=== PATIENT | female | born 1985 | race Caucasian/White ===

== ENCOUNTER 2018-03-30 13:34 | Inpatient (IN) | payer OTHER ==
[2018-03-30] MEDS ORDERED: LEVALBUTEROL 1.25 MG/3 ML NEB ONE (14:20)
[2018-03-30] MEDS ORDERED: NA CHLORIDE 0.9% 250 ML ONE (14:20)
--- NOTE | 2018-03-30 14:29 | RAD REPORT ---
EXAM DESCRIPTION: RAD - Chest Single View - 03/30/2018 2:24 pm CLINICAL HISTORY: DYSPNEA Chest pain. COMPARISON: No comparisons FINDINGS: Portable technique limits examination quality. Bilateral pulmonary opacities are present likely representing pulmonary edema. Prominent cardiomegaly is suspected. Trace pleural fluid is noted.
[2018-03-30 14:59] LABS: Absolute Lymphocytes (CBC) 2.5 K/uL (0.7-4.9); Absolute Monocytes 0.7 K/uL (0.1-1.3); Absolute Neutrophil 6.5 K/uL (1.8-8.0); Basophils % 0.9 % (0-1.3); Eosinophils % 0.4 % (0-4.4); Hematocrit 31.6 % (36.0-45.0); Lymphocytes % 25.6 % (15.3-44.8); MCH 23.2 pg (27.0-35.0); MCV 74.2 fL (80-100); MPV 7.9 fL (7.6-11.3); Monocytes % 7.4 % (3.3-12.3); RBC Red Blood Cell Count 4.26 M/uL (3.86-4.86)
[2018-03-30 15:00] LABS: Potassium 4.9 mmol/L (3.5-5.1)
--- NOTE | 2018-03-30 15:04 | RAD REPORT ---
EXAM DESCRIPTION: US - EXTREM VENOUS W COMPRESS KIP - 03/30/2018 2:55 pm CLINICAL HISTORY: SWELLING Bilateral leg edema and swelling. COMPARISON: No comparisons TECHNIQUE: Real-time sonographic interrogation of the left and right lower extremity deep venous sys tems was performed. FINDINGS: Normal compressibility, flow augmentation, phasic flow and spontaneous flow is identified in both the left and right lower extremity deep venous systems. IMPRESSION: No sonographic evidence of left or right lower extremity deep venous thrombosis.
[2018-03-30] MEDS ORDERED: ONDANSETRON 4 MG/2 ML VIAL ONE ×2 (15:19→15:21)
--- NOTE | 2018-03-30 15:42 | RAD REPORT ---
EXAM DESCRIPTION: CT - Chest For Pe Angio - 03/30/2018 3:34 pm CLINICAL HISTORY: Chest pain. DYSPNEA COMPARISON: No comparisons TECHNIQUE: CT angiogram of the pulmonary arteries was performed with MIP. All CT scans are performed using dose optimization technique as appropriate and may include automated exposure control or mA/KV adjustment according to patient size. FINDINGS: No evidence of pulmonary thromboembolism. Significant cardiomegaly is seen without pericardial fluid. Bilateral airspace opacities are present likely indicating pulmonary edema. Small to moderate left and moderate to large right pleural effusion seen. No concerning bony finding. IMPRESSION: No evidence of pulmonary thromboembolism. Moderate to significant CHF pattern. An underlying cardiomyopathy is possible. Consider correlation w ith echocardiography.
[2018-03-30] MEDS ORDERED: FUROSEMIDE 40 MG/4 ML VIAL ONE (15:54)
--- NOTE | 2018-03-30 16:05 | EDPHYS ---
Physician Documentation [facility] Name: Rosetta Ramírez Age: 33 yrs Sex: Female : 1985 Arrival Date: 03/30/2018 Time: 13:36 Bed 4 Private MD: Abdi Scott E ED Physician Ted Ford HPI: 03/30 15:28 This 33 yrs old Female presents to ER via Ambulatory with complaints of rn Shortness Of Breath. 15:28 The patient has shortness of breath at rest. Onset: The symptoms/episode began/occurred rn 3 day(s) ago. Duration: The symptoms are continuous. The patient's shortness of breath is aggravated by exertion, supine position. Associated signs and symptoms: Pertinent positives: dizziness, Pertinent negatives: fever, hemoptysis, loss of consciousness. Severity of symptoms: At their worst the symptoms were moderate in the emergency department the symptoms are unchanged. The patient has experienced similar episodes in the past, a few times, but today's symptoms are worse. Reports 3 weeks s/p delivery, vaginal, no complications, + 3 days of sob, dyspnea on exertion, and orthopnea, has been told 5 years ago had "leaky valve", but hasn't followed up, no current vaginal or intestinal bleeding. No fever. + swelling of legs. No hx of dvt/pe.. 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 - Social history:: Smoking status: Patient/guardian denies using tobacco. - Ebola Screening: : Patient denies exposure to infectious person Patient denies travel to an Ebola-affected area in the 21 days before illness onset. - Family history:: not pertinent. - Hospitalizations: : No recent hospitalization is reported. ROS: 15:28 Constitutional: Negative for fever, chills, and weight loss, Eyes: Negative for injury, rn pain, redness, and discharge, Neck: Negative for injury, pain, and swelling, Cardiovascular: + palpitations Respiratory: + sob Abdomen/GI: Negative for abdominal pain, nausea, vomiting, diarrhea, and constipation, MS/Extremity: Negative for injury and deformity, Skin: Negative for injury, rash, and discoloration, Neuro: Negative for headache, numbness, tingling, and seizure. Exam: 15:28 Constitutional: This is a well developed, well nourished patient who is awake, alert, rn moderate tachypnea and pale skin Head/Face: Normocephalic, atraumatic. Eyes: Pupils equal round and reactive to light, extra-ocular motions intact. Lids and lashes normal. Conjunctiva and sclera are non-icteric and not injected. Cornea within normal limits. Periorbital areas with no swelling, redness, or edema. Cardiovascular: tachycardic, regular Respiratory: + moderate tachypnea, no retractions, speaking 4-5 word sentences, + bilateral crackles noted Abdomen/GI: soft, non-tender MS/ Extremity: Pulses equal, no cyanosis. Neurovascular intact. Full, normal range of motion. Equal circumference. 1+ pitting edema bilateral lower ext Neuro: Awake and alert, GCS 15, oriented to person, place, time, and situation. Cranial nerves II-XII grossly intact. Motor strength 5/5 in all extremities. Sensory grossly intact. Vital Signs: 14:04 BP 136 / 95; Pulse 108; Resp 22; Temp 97.9(O); Pulse Ox 96% on R/A; Weight 63.5 kg (R); aj1 Height 5 ft. 6 in. (167.64 cm) (R); 14:35 Pulse Ox 94% on R/A; hb 14:40 Pulse Ox 97% on 2 lpm NC; hb 15:00 BP 124 / 93; Pulse 116; Resp 24; Pulse Ox 98% on Nebulizer Mask; hb 16:00 BP 122 / 98; Pulse 116; Resp 25; Pulse Ox 96% 2 lpm ; hb 17:00 BP 128 / 98; Pulse 115; Resp 23; Pulse Ox 97% on 3 lpm NC; hb 14:04 Body Mass Index 22.60 (63.50 kg, 167.64 cm) aj1 MDM: 14:04 Patient medically screened. rn 16:03 Differential diagnosis: Anemia CHF exacerbation, Myocardial Infarction pneumonia, rn Pneumothorax pulmonary edema, Pulmonary Embolism. Data reviewed: vital signs, nurses notes, lab test result(s), EKG, radiologic studies, CT scan, plain films, and as a result, I will admit patient. Counseling: I had a detailed discussion with the patient and/or guardian regarding: the historical points, exam findings, and any diagnostic results supporting the discharge/admit diagnosis, lab results, radiology results, the need for further work-up and treatment in the hospital. Response to treatment: the patient's symptoms have mildly improved after treatment, and as a result, I will admit patient. Admission orders: after a detailed discussion of the patient's condition and case, the admit orders are written by me. ED course: Admitted to Dr. Parker for cardiology consult and ECHO, lasix ordered.. 03/30 14:13 Order name: Blood Culture Adult (2) rn 03/30 14:13 Order name: BMP; Complete Time: 15:15 rn 03/30 14:13 Order name: CBC with Diff; Complete Time: 15:15 rn 03/30 14:13 Order name: NT PRO-BNP; Complete Time: 15:15 rn 03/30 14:13 Order name: Troponin (emerg Dept Use Only); Complete Time: 15:15 rn 03/30 14:13 Order name: Type And Screen; Complete Time: 16:05 rn 03/30 14:13 Order name: CT Chest For PE Angio; Complete Time: 15:51 rn 03/30 14:13 Order name: XRAY CXR (1 view); Complete Time: 14:50 rn 03/30 14:13 Order name: Extrem Venous W Compression Aguila US; Complete Time: 15:15 rn 03/30 17:08 Order name: Urine Dipstick--Ancillary (enter results) eb 03/30 17:42 Order name: Urine Dipstick-Ancillary EDMI 03/30 14:13 Order name: EKG; Complete Time: 14:15 rn 03/30 14:13 Order name: Cardiac monitoring; Complete Time: 16:08 rn 03/30 14:13 Order name: EKG - Nurse/Tech; Complete Time: 16:08 rn 03/30 14:13 Order name: IV Saline Lock; Complete Time: 16: rn 03/30 14:13 Order name: Labs collected and sent; Complete Time: 16:08 rn 03/30 14:13 Order name: O2 Per Protocol; Complete Time: 16:08 rn 03/30 14:13 Order name: O2 Sat Monitoring; Complete Time: 16: rn 03/30 14:13 Order name: Urine Dipstick-Ancillary (obtain specimen); Complete Time: 17:36 rn Administered Medications: 14:20 Drug: NS 0.9% 250 ml Route: IV; Rate: 1 bolus; Site: right antecubital; hb 14:40 Follow up: Response: No adverse reaction; IV Status: Completed infusion hb 14:20 Drug: Xopenex 1.25 mg Route: Inhalation; hb 17:35 Follow up: Response: No adverse reaction hb 15:50 Drug: Lasix 40 mg Route: IVP; Site: right antecubital; hb 16:15 Follow up: Response: No adverse reaction hb Disposition: 03/30/18 16:05 Hospitalization ordered by Clementina Parker for Inpatient Admission. Preliminary diagnosis are Pulmonary edema, Dyspnea, unspecified, Pleural effusion, not elsewhere classified. - Bed requested for Telemetry/MedSurg (Inpatient). - Status is Inpatient Admission. sv - Condition is Stable. - Problem is new. - Symptoms have improved. UTI on Admission? No Signatures: Dispatcher [employer] EDMI Cynthia Ely RN RN kl Verde, Stephanie, RN RN sv Nieto, Roman, MD MD rn Smirch, Shelby, RN RN Trinity Aguilar RN RN Corrections: (The following items were deleted from the chart) 17:13 16:05 Hospitalization Ordered by Clementina Parker MD for Inpatient Admission. Preliminary diagnosis is Pulmonary edema; Dyspnea, unspecified; Pleural effusion, not elsewhere classified. Bed requested for Telemetry/MedSurg (Inpatient). Status is Inpatient Admission. Condition is Stable. Problem is new. Symptoms have improved. UTI on Admission? No. rn 17:48 17:13 03/30/2018 16:05 Hospitalization Ordered by Clementina Parker MD for Inpatient sv Admission. Preliminary diagnosis is Pulmonary edema; Dyspnea, unspecified; Pleural effusion, not elsewhere classified. Bed requested for Telemetry/MedSurg (Inpatient). Status is Inpatient Admission. Condition is Stable. Problem is new. Symptoms have improved. UTI on Admission? No. kl
--- NOTE | 2018-03-30 16:05 | ER ---
Nurse's Notes [facility] Name: Rosetta Ramírez Age: 33 yrs Sex: Female : 1985 Arrival Date: 03/30/2018 Time: 13:36 Bed 4 Private MD: Abdi Scott E Diagnosis: Pulmonary edema;Dyspnea, unspecified;Pleural effusion, not elsewhere classified Presentation: 03/30 13:58 Presenting complaint: Patient states: difficulty breathing that began "a couple days ss ago", has gotten worse over a period of time. Pt appears pale, states she usually is not this pale. Transition of care: patient was not received from another setting of care. Onset of symptoms was March 29, 2018. Risk Assessment: Do you want to hurt yourself or someone else? Patient reports no desire to harm self or others. Initial Sepsis Screen: Does the patient have a suspected source of infection? No. Patient's initial sepsis screen is negative. Care prior to arrival: None. 13:58 Method Of Arrival: Ambulatory ss 13:58 Acuity: CRYSTAL 3 ss 14:00 Initial Sepsis Screen: Does the patient meet any 2 criteria? RR > 20 per min. Does the hb patient have a suspected source of infection? No. Patient's initial sepsis screen is negative. 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 - Social history:: Smoking status: Patient/guardian denies using tobacco. - Ebola Screening: : Patient denies exposure to infectious person Patient denies travel to an Ebola-affected area in the 21 days before illness onset. - Family history:: not pertinent. - Hospitalizations: : No recent hospitalization is reported. Screenin:15 Abuse screen: Denies threats or abuse. Denies injuries from another. Nutritional hb screening: No deficits noted. Tuberculosis screening: No symptoms or risk factors identified. Fall Risk None identified. Assessment: 14:15 General: Appears in no apparent distress. Behavior is calm, cooperative. Pain: Denies hb pain. Neuro: Level of Consciousness is awake, alert, obeys commands, Oriented to person, place, time, situation. Cardiovascular: Heart tones S1 S2 present Capillary refill < 3 seconds Patient's skin is warm and dry. Rhythm is regular. Respiratory: Airway is patent Trachea midline Respiratory effort is mildly labored Respiratory pattern is regular, symmetrical, tachypnea Breath sounds are clear bilaterally. GI: No signs and/or symptoms were reported involving the gastrointestinal system. : No signs and/or symptoms were reported regarding the genitourinary system. EENT: No signs and/or symptoms were reported regarding the EENT system. Derm: Skin is intact, is healthy with good turgor, Skin is dry, Skin is pale, Skin temperature is warm. Musculoskeletal: No signs and/or symptoms reported regarding the musculoskeletal system. 14:30 Reassessment: US at bedside for venous doppler. hb 14:35 Reassessment: SpO2 94% on RA, improved to 96-100% after 2LNC. hb 15:00 Reassessment: Respirations mildly labored, R 18-30, SpO2 96-100% on 2LNC, Dr. Ford hb aware. 16:00 Reassessment: No changes from previously documented assessment. Patient and/or family hb updated on plan of care and expected duration. Pain level reassessed. 17:00 Reassessment: No changes from previously documented assessment. Patient and/or family hb updated on plan of care and expected duration. Pain level reassessed. Admission ordered, awaiting room assignment at this time. Vital Signs: 14:04 BP 136 / 95; Pulse 108; Resp 22; Temp 97.9(O); Pulse Ox 96% on R/A; Weight 63.5 kg (R); aj1 Height 5 ft. 6 in. (167.64 cm) (R); 14:35 Pulse Ox 94% on R/A; hb 14:40 Pulse Ox 97% on 2 lpm NC; hb 15:00 BP 124 / 93; Pulse 116; Resp 24; Pulse Ox 98% on Nebulizer Mask; hb 16:00 BP 122 / 98; Pulse 116; Resp 25; Pulse Ox 96% 2 lpm ; hb 17:00 BP 128 / 98; Pulse 115; Resp 23; Pulse Ox 97% on 3 lpm NC; hb 14:04 Body Mass Index 22.60 (63.50 kg, 167.64 cm) aj1 ED Course: 13:36 Patient arrived in ED. sb2 13:36 Abdi Scott MD is Private Physician. sb2 14:00 Triage completed. ss 14:01 Arm band placed on right wrist. ss 14:04 Ted Ford MD is Attending Physician. rn 14:10 EKG done, by handling tech. reviewed by Ted Ford MD. sm3 14:15 Patient has correct armband on for positive identification. Placed in gown. Bed in low hb position. Call light in reach. Side rails up X 1. 14:22 Inserted saline lock: 20 gauge in right antecubital area, using aseptic technique. em1 Blood collected. 14:24 XRAY CXR (1 view) In Process Unspecified. EDMS 14:53 Extrem Venous W Compression Aguila US In Process Unspecified. EDMS 15:04 Trinity Aguilar, RN is Primary Nurse. hb 15:34 CT completed. Patient tolerated procedure well. Patient moved back from CT. nj 15:34 CT Chest For PE Angio In Process Unspecified. EDMS 16:04 Clementina Parker MD is Hospitalizing Provider. rn 17:36 Urine Dipstick--Ancillary (enter results) Sent. hb 17:36 No provider procedures requiring assistance completed. Patient admitted, IV remains in hb place. Administered Medications: 14:20 Drug: NS 0.9% 250 ml Route: IV; Rate: 1 bolus; Site: right antecubital; hb 14:40 Follow up: Response: No adverse reaction; IV Status: Completed infusion hb 14:20 Drug: Xopenex 1.25 mg Route: Inhalation; hb 17:35 Follow up: Response: No adverse reaction hb 15:50 Drug: Lasix 40 mg Route: IVP; Site: right antecubital; hb 16:15 Follow up: Response: No adverse reaction hb Outcome: 16:05 Decision to Hospitalize by Provider. rn 17:36 Admitted to Med/surg accompanied by tech, room 216, with oxygen, with chart, Report hb called to ALINE Owen 17:36 Condition: stable 17:36 Instructed on the need for admit, Demonstrated understanding of instructions. 17:48 Patient left the ED. sv Signatures: Dispatcher [employer] EDOH Clari Padilla RN RN aj1 Zayra Agarwal RN RN Ted Ford MD MD rn Martinez, Eric em1 Michelle Hernández RN RN Trinity Aguilar, Trung Sullivan RN, Sheri sb2 Jasmyne Hernandez sm3 Corrections: (The following items were deleted from the chart) 14:04 14:01 BP 136 / 95; Resp 25bpm; Pulse Ox 97%; Temp 97.9F Oral; 65.77 kg; Height 5 ft. 6 aj1 in.; BMI: 23.4; Pain 7/10; ss 16:14 14:15 Respiratory: Airway is patent Trachea midline Respiratory effort is even, hb unlabored, Respiratory pattern is regular, symmetrical, Breath sounds are clear bilaterally. hb 16:14 15:06 Reassessment: Patient appears in no apparent distress at this time. No changes hb from previously documented assessment. Patient and/or family updated on plan of care and expected duration. Pain level reassessed. Patient is alert, oriented x 3, equal unlabored respirations, skin warm/dry/pink. hb
--- NOTE | 2018-03-30 16:26 | EKG ---
Test Date: 2018-03-30 Test Time: 14:05:07 Child Psychologist: GUILLE MEASUREMENT RESULTS: Intervals: Rate: 112 GA: 128 QRSD: 88 QT: 364 QTc: 496 [place]: P: 73 GA: 128 QRS: 107 T: 15 INTERPRETIVE STATEMENTS: Sinus tachycardia Rightward axis Cannot rule out Anterior infarct, age undetermined Abnormal ECG Compared to ECG 08/27/2016 19:43:04 Myocardial infarct finding now present Sinus rhythm no longer present Electronically Signed On 03-30-18 16:25:49 CDT by Petey Le
--- NOTE | 2018-03-30 16:43 | P.HP ---
Certification for Inpatient Patient admitted to: Inpatient With expected LOS: >2 Midnights Patient will require the following post-hospital care: None Practitioner: I am a practitioner with admitting privileges, knowledge of patient current condition, hospital course, and medical plan of care. Services: Services provided to patient in accordance with Admission requirements found in Title 42 Section 412.3 of the Code of Federal Regulations Patient History Date of Service: 03/30/18 Primary Care Provider: Dr Hoff Reason for admission: Shortness of breath History of Present Illness: This is a 33-year-old female with significant past medical history of mitral valve prolapse with ejection fraction of 25% reported that the patient presented to the ED complaining of having some shortness of breath that has been going on for past couple of days. Patient stated that 3 weeks ago she delivered a baby boy in that was her 3rd delivery and was doing well until 2 days ago were she started having some shortness of breath that has been getting progressively worse. Patient also noted that she has been having some fever and chills for past couple of days as well. Patient does have a history of mitral valve prolapse which was found during her 1st and she has been seen by a metal molder in [facility] however was not started on a medication and was asked to monitor closely. During this patient states that her OBGYN has been monitoring her cardiac function closely and has no complication during the . Patient stated that she has been having shortness of note also complains of having some chest pain redness of breath. Patient denies having any nausea vomiting abdominal pain or any other associated symptoms. Only complains of having shortness of breath, fever chills , and chest pain In the ER patient had lab work done which was consistent with elevated BNP and x -rays that was consistent with bilateral is pulmonary opacity concerning for pulmonary edema. Patient does was admitted to the hospital for further workup. Allergies No Known Allergies Allergy (Unverified 08/27/16 21:16) - Past Medical/Surgical History Has patient received pneumonia vaccine in the past: Yes Diabetic: No -: The mitral valve prolapse -: - Family History Family History: Reviewed- Non-Contributory - Social History Smoking Status: Never smoker Smoking therapy provided: Yes Patient receptive to therapy: Yes Alcohol use: No CD- Drugs: No Caffeine use: No Place of Residence: Home Review of Systems 10-point ROS is otherwise unremarkable Physical Examination - Physical Exam General: Alert, Oriented x3, Acute distress HEENT: Atraumatic, PERRLA, Mucous membr. moist/pink, EOMI, Sclerae nonicteric Neck: Supple, 2+ carotid pulse no bruit, No LAD, Without JVD or thyroid abnormality Respiratory: Normal air movement, Crackles/rales Cardiovascular: Regular rate/rhythm, Normal S1 S2, Systolic murmur Gastrointestinal: Normal bowel sounds, Soft and benign, Non-distended, No tenderness Musculoskeletal: No tenderness Integumentary: No rashes Neurological: Normal gait, Normal speech, Normal strength at 5/5 x4 extr, Normal tone, Normal affect Lymphatics: No axilla or inguinal lymphadenopathy - Studies Laboratory Data (last 24 hrs) 03/30/18 14:20: WBC 9.9, Hgb 9.9 L, Hct 31.6 L, Plt Count 550 H 03/30/18 14:20: Sodium 141, Potassium 4.9, BUN 18, Creatinine 0.90, Glucose 118 H Assessment and Plan - Problems (Diagnosis) (1) Dyspnea Current Visit: Yes Status: Acute Plan: Acute dyspnea with orthopnea as well. -the patient with history of mitral valve prolapse most likely her dyspnea secondary to volume overload secondary to area being 25% with recent state -will go ahead and get echocardiogram done at this time. Will order IV Lasix b.i.d.. With cardiology consultation as well at this time. -will repeat chest x-ray in the morning. Qualifiers: Dyspnea type: dyspnea on exertion Qualified Code(s): R06.09 - Other forms of dyspnea (2) MVP (mitral valve prolapse) Current Visit: Yes Status: Acute Plan: History of mitral valve prolapse. With EF of 25% per patient. Concerning for SBP. Will start on SBP prophylaxis given the history of fever and chills. (3) cardiac complication Current Visit: Yes Status: Acute Plan: C 1. - Plan Patient will be admitted to [facility] for IV Lasix and cardiac evaluation with Cardiology. Echocardiogram will be ordered as well. Discharge Plan: Home Plan to discharge in: 72 Hours - Advance Directives Does patient have a Living Will: No Does patient have a Durable POA for Healthcare: No - Code Status/Comfort Care Code Status Assessed: Yes Critical Care: No
[2018-03-30 17:41] LABS: Urine Blood 2+ (NEG); Urine Glucose NEGATIVE (NEG); Urine Protein NEGATIVE (NEG); Urine Specific Gravity 1.015 (1.005-1.030)
[2018-03-30] MEDS ORDERED: ONDANSETRON 4 MG/2 ML VIAL IV PRN (18:26)
[2018-03-30] MEDS: FUROSEMIDE 40 MG/4 ML VIAL IV SCH (19:00)
[2018-03-30] MEDS: ENOXAPARIN 40 MG/0.4 ML SQ SCH (20:18)
[2018-03-30] MEDS: MORPHINE 2 MG/ML SYR IV PRN (23:01)
[2018-03-30] MEDS: ACETAMINOPHEN 500 MG TAB PO PRN (23:04)
[2018-03-30 23:23] LABS: Urine Appearance CLEAR; Urine Bilirubin NEGATIVE (NEG); Urine Blood TRACE (NEG); Urine Color YELLOW; Urine Glucose NEGATIVE (NEG); Urine Protein NEGATIVE (NEG); Urine Specific Gravity 1.025 (1.005-1.030); Urine Urobilinogen 0.2 mg/dL (0.2-1.0)
[2018-03-30 23:36] LABS: Urine Microscopic Reflex ORDER UMIC
[2018-03-31 00:22] LABS: Urine Bacteria <20 /HPF (<20); Urine Culture Reflex Order NOT NEEDED; Urine RBC <5 /HPF (NONE SEEN)
[2018-03-31 05:05] LABS: Absolute Lymphocytes (CBC) 3.2 K/uL (0.7-4.9); Absolute Monocytes 0.7 K/uL (0.1-1.3); Absolute Neutrophil 6.3 K/uL (1.8-8.0); Basophils % 0.9 % (0-1.3); Eosinophils % 0.9 % (0-4.4); Hematocrit 30.3 % (36.0-45.0); Lymphocytes % 30.4 % (15.3-44.8); MCH 23.2 pg (27.0-35.0); MCV 73.8 fL (80-100); MPV 7.8 fL (7.6-11.3); Monocytes % 6.9 % (3.3-12.3)
[2018-03-31 05:10] LABS: Protime INR 1.21
--- NOTE | 2018-03-31 08:16 | RAD REPORT ---
EXAM DESCRIPTION: RAD - Chest Pa And Lat (2 Views) - 03/31/2018 6:32 am CLINICAL HISTORY: SOB Chest pain. COMPARISON: Chest Single View dated 03/30/2018 FINDINGS: Since the comparative study, slight increase in the size of the pleural effusions is noted , greater on the right. Bilateral pulmonary opacities are again noted, appearing slightly improved. T he heart remains significantly prominent in size.
[2018-03-31] MEDS: FUROSEMIDE 40 MG/4 ML VIAL IV SCH ×2 (08:46→17:00)
[2018-03-31] MEDS: ENOXAPARIN 40 MG/0.4 ML SQ SCH (08:47)
[2018-03-31 11:22] LABS: Albumin 2.4 g/dL (3.4-5.0); Bilirubin Total 0.5 mg/dL (0.2-1.0); Magnesium 2.1 mg/dL (1.8-2.4); Phosphorus 4.2 mg/dL (2.5-4.9); Protein, Total 5.5 g/dL (6.4-8.2); Thyroid Stimulating Hormone 0.92 uIU/mL (0.360-3.740)
--- NOTE | 2018-03-31 16:26 | P.PN ---
Subjective Date of Service: 03/31/18 Primary Care Provider: Dr Hoff Chief Complaint: Shortness of breath Patient seen and examined at bedside with RN. Chart reviewed. Currently has no complaints to offer overnight. States that she still feels short of breath and has not been able to get out of bed this morning. Denies having any nausea vomiting or any abdominal pain. However does complain of having some chills at this time Review of Systems 10-point ROS is otherwise unremarkable Physical Examination - Vital Signs Temperature: 96.6 F Blood Pressure: 109/82 Pulse: 95 Respirations: 20 Pulse Ox (%): 92 - Physical Exam General: Alert, Oriented x3, Mild distress HEENT: Atraumatic, PERRLA, EOMI Neck: Supple, JVD not distended Respiratory: Normal air movement, Crackles/rales Cardiovascular: Regular rate/rhythm, Normal S1 S2 Gastrointestinal: Normal bowel sounds, No tenderness Musculoskeletal: No tenderness Integumentary: No rashes Neurological: Normal speech, Normal tone, Normal affect Lymphatics: No axilla or inguinal lymphadenopathy - Studies Medications List Reviewed: Yes Assessment And Plan - Current Problems (Diagnosis) (1) Dyspnea Onset Date: 03/31/18 Current Visit: Yes Status: Acute Plan: Acute dyspnea with orthopnea as well. -still continues to be short of breath. -echocardiogram with severe mitral regurgitation along with ejection fraction of 20%. -on IV Lasix b.i.d, restarted on Coreg, will also had CARLOTTA-inhibitor -cardiology consulted as appreciated recommendations at this time -will repeat chest x-ray in the morning. Qualifiers: Dyspnea type: dyspnea on exertion Qualified Code(s): R06.09 - Other forms of dyspnea (2) MVP (mitral valve prolapse) Onset Date: 03/31/18 Current Visit: Yes Status: Acute Plan: History of mitral valve prolapse. -reason echo with mitral valve prolapse and mitral regurgitation with ejection fraction of 20% -will continue to observe closely (3) cardiac complication Onset Date: 03/31/18 Current Visit: Yes Status: Acute Plan: Most likely cardiomyopathy. Will continue to monitor closely (4) Elevated LFTs Current Visit: Yes Status: Acute Plan: Possibly secondary to congestive heart failure versus hepatitis. -Will go ahead and get hepatitis panel at this time. -Will repeat lab work tomorrow morning. -Will continue to monitor patient closely for any worsening. - Plan Currently awaiting clinical improvement. Waiting for abdominal ultrasound along with hepatitis panel to evaluate for elevated LFTs. Discharge Plan: Home Plan to discharge in: 48 Hours - Code Status/Comfort Care Code Status Assessed: Yes Critical Care: No
[2018-03-31] MEDS: MORPHINE 2 MG/ML SYR IV PRN ×2 (17:10→20:35)
[2018-03-31] MEDS: CARVEDILOL 12.5 MG TAB PO SCH (17:12)
--- NOTE | 2018-03-31 19:34 | RAD REPORT ---
EXAM DESCRIPTION: US - Abdomen Exam Complete - 03/31/2018 7:07 pm CLINICAL HISTORY: Elevated Lft post partumAbdominal pain COMPARISON: none FINDINGS: The liver has a normal echotexture. A gallstone is not seen. The gallbladder wall is not thickened. The biliary tree is normal caliber. A 4 millimeter polyp is present in the gallbladder The pancreas appears normal in size and echotexture The right kidney measures 10 centimeters with a normal echotexture. The left kidney measures 9 centimeters with a normal echotexture. The spleen measures 10 centimeters. Portions of the abdominal aorta are not well seen. The visualized aorta appears normal. The inferior vena cava appears unremarkable IMPRESSION: 4 millimeter gallbladder polyp
[2018-03-31 20:18] VITALS: TEMP 97.6
[2018-03-31] MEDS ORDERED: CARVEDILOL 6.25 MG TAB PO SCH (21:00)
[2018-04-01] MEDS: MORPHINE 2 MG/ML SYR IV PRN (00:18)
[2018-04-01] MEDS: CARVEDILOL 12.5 MG TAB PO SCH (05:22)
--- NOTE | 2018-04-01 05:38 | CON ---
Date of Consultation: 03/31/2018 Reason For Consultation: Congestive heart failure. History Of Present Illness: Ms. 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 Apparently after her second child, she rodríguez d some issues with eclampsia and was advised not to have any more children, but she just recently had another child about a month ago and has had congestive heart failure. Since her last ejection fract ion was about 25%, an echocardiogram that was done today showed an ejection fraction about 20-25%. S he came in with PND, orthopnea, pedal edema, shortness of breath, that have already resolved by the t lele I saw her after receiving IV Lasix. She denied syncope, denied chest pain, denied any nausea or vomiting. Has had some diaphoresis and weight gain. Denies any fever or chills. Past Medical History: Otherwise negative. Allergies: NONE. Review of Systems: Negative. Social History: Negative. Family History: Negative. Physical Examination: General: She appeared her stated age. When I saw her, her vital signs were stable. She was in norm al rhythm. Afebrile. HEENT: Negative. Neck: Supple without any lymphadenopathy, JVD, or bruit. Chest: Clear to auscultation and percussion. Cardiac: Regular rhythm and rate with S3 gallops. No rubs. She had mitral regurgitation and murmur . Abdomen: Benign. Extremities: No clubbing or cyanosis. She had 1+ edema. Imaging Data: EKG was nonspecific. Chest x-ray showed CHF. BNP elevated. Troponin negative. Impression And Plan: Peripartum cardiomyopathy. The patient is on carvedilol 6.25 mg b.i.d. I woul d like to increase that to 12.5 mg b.i.d. I think she needs to be on a low-dose Lasix of 20 mg daily . She needs to avoid salt. She needs to be on an CARLOTTA inhibitor and I would leave that choice up to Dr. aPrker. She needs to avoid in the future. This was discussed with her in details. She was instructed regarding dietary restrictions. The patient can go home whenever it is okay with Dr. Parker. She will see me in the office next week. She will need serial echoes to determine if her ej ection fraction will improve. We may have to consider Entresto down the road. KAYE/ROSELYN Voice ID: [id number] Report ID: [id number]
[2018-04-01 05:42] LABS: Absolute Lymphocytes (CBC) 1.7 K/uL (0.7-4.9); Absolute Monocytes 0.6 K/uL (0.1-1.3); Absolute Neutrophil 7.3 K/uL (1.8-8.0); Basophils % 0.9 % (0-1.3); Eosinophils % 2.4 % (0-4.4); Hematocrit 31.7 % (36.0-45.0); Lymphocytes % 17.3 % (15.3-44.8); MCH 23.5 pg (27.0-35.0); MCV 72.4 fL (80-100); Monocytes % 5.6 % (3.3-12.3); RBC Red Blood Cell Count 4.38 M/uL (3.86-4.86)
[2018-04-01 05:55] LABS: Protime INR 1.08
[2018-04-01 05:58] LABS: Albumin 2.1 g/dL (3.4-5.0); Bilirubin Total 0.5 mg/dL (0.2-1.0); Magnesium 2.1 mg/dL (1.8-2.4); Phosphorus 4.3 mg/dL (2.5-4.9); Potassium 4.6 mmol/L (3.5-5.1); Protein, Total 5.1 g/dL (6.4-8.2)
[2018-04-01] MEDS ORDERED: LISINOPRIL 5 MG TAB PO SCH (09:00)
[2018-04-01] MEDS: ENOXAPARIN 40 MG/0.4 ML SQ SCH (09:00)
[2018-04-01] MEDS ORDERED: FUROSEMIDE 20 MG TABLET PO SCH (09:00)
[2018-04-01] MEDS: ACETAMINOPHEN 500 MG TAB PO PRN (11:00)
--- NOTE | 2018-04-01 12:53 | P.PN ---
Subjective Date of Service: 04/01/18 Primary Care Provider: Dr Hoff Chief Complaint: Shortness of breath Patient seen and examined at bedside with RN. Chart reviewed. Currently has no complaints to offer overnight. -Pt desaturated down to 86% off the oxygen. Back on 2L and now upto 93% Review of Systems 10-point ROS is otherwise unremarkable General: As per HPI Physical Examination - Vital Signs Temperature: 97.6 F Blood Pressure: 82/50 Pulse: 68 Respirations: 16 Pulse Ox (%): 96 - Physical Exam General: Alert, In no apparent distress HEENT: Atraumatic, PERRLA, EOMI Neck: Supple, JVD not distended Respiratory: Clear to auscultation bilaterally, Normal air movement Cardiovascular: Regular rate/rhythm, Normal S1 S2 Gastrointestinal: Normal bowel sounds, No tenderness Musculoskeletal: No tenderness Integumentary: No rashes Neurological: Normal speech, Normal tone, Normal affect Lymphatics: No axilla or inguinal lymphadenopathy - Studies Medications List Reviewed: Yes Assessment And Plan - Current Problems (Diagnosis) (1) Dyspnea Onset Date: 03/31/18 Current Visit: Yes Status: Acute Plan: Acute dyspnea with orthopnea as well. -echocardiogram with severe mitral regurgitation along with ejection fraction of 20%. -on IV Lasix b.i.d, restarted on Coreg, and new CARLOTTA-inhibitor -cardiology consulted as appreciated recommendations at this time -will repeat chest x-ray in the morning. Qualifiers: Dyspnea type: dyspnea on exertion Qualified Code(s): R06.09 - Other forms of dyspnea (2) MVP (mitral valve prolapse) Onset Date: 03/31/18 Current Visit: Yes Status: Acute Plan: History of mitral valve prolapse. -recent echo with mitral valve prolapse and mitral regurgitation with ejection fraction of 20% -will continue to observe closely (3) cardiac complication Onset Date: 03/31/18 Current Visit: Yes Status: Acute Plan: Most likely cardiomyopathy. Will continue to monitor closely (4) Elevated LFTs Current Visit: Yes Status: Acute Plan: Possibly secondary to congestive heart failure versus hepatitis. -Improving today -Will continue to Observe - Plan Currently awaiting clinical improvement. LFt improving. US negative for any abnormal finding except 4mm GB polyp Discharge Plan: Home Plan to discharge in: 48 Hours - Code Status/Comfort Care Code Status Assessed: Yes Critical Care: No
[2018-04-01] MEDS ORDERED: DOPAMINE/D5W 400 MG/250 ML BAG IV PRN (18:09)
[2018-04-01 18:22] VITALS: BMI 24.2
[2018-04-01 18:25] VITALS: O2SAT 95
[2018-04-01 20:28] VITALS: BP 90/60
[2018-04-04 03:19] LABS: HBsAG Nonreactive (Nonreactive); Hepatitis A IgM Antibody Nonreactive
--- NOTE | 2018-04-04 09:30 | ECHO ---
HEIGHT: 5 ft 6 in WEIGHT: 150 lb 0 oz DATE OF STUDY: 03/31/[address]: Clementina Parker MD 2-DIMENSIONAL: YES M.MODE: YES DOPPLER: YES COLOR FLOW: YES TDS: PORTABLE: DEFINITY: BUBBLE STUDY: DIAGNOSIS: CONGESTIVE HEART FAILURE CARDIAC HISTORY: CATHERIZATION: NO SURGERY: NO PROSTHETIC VALVE: NO PACEMAKER: NO MEASUREMENTS (cm) DIASTOLIC (NORMALS) SYSTOLIC (NORMALS) IVSd 1.1 (0.6-1.2) LA Diam 4.4 (1.9-4.0) LVEF 21% LVIDd 6.0 (3.5-5.7) LVIDs 5.4 (2.0-3.5) %FS 10% LVPWd 1.1 (0.6-1.2) Ao Diam 3.1 (2.0-3.7) 2 DIMENSIONAL ASSESSMENT: RIGHT ATRIUM: NORMAL LEFT ATRIUM: DILATED RIGHT VENTRICLE: NORMAL LEFT VENTRICLE: DILATED TRICUSPID VALVE: NORMAL MITRAL VALVE: NORMAL PULMONIC VALVE: NORMAL AORTIC VALVE: NORMAL PERICARDIAL EFFUSION: NONE AORTIC ROOT: NORMAL LEFT VENTRICULAR WALL MOTION: SEVERE GLOBAL HYPOKINESIS DOPPLER/COLOR FLOW: MODERATE TRICUSPID REGURGITATION. COMMENTS: MODERATE MITRAL REGURGITATION. SEVERE GLOBAL HYPOKINESIS. LEFT ATRIAL ENLARGEMENT. LEFT VENTRICULAR ENLARGEMENT. NO EFFUSION. TECHNOLOGIST: DARA JENKINS
== END 2018-04-01 20:00 | disposition short-term general hospital (02) | DRG 776 ==
LOC: ER 13:34 → ERHOLD 16:14 → 2ND 17:34 → 3RD-ICU 04-01 18:12
PROVIDERS: ADMIT Family Medicine; ATTEND Family Medicine
DX: O90.3 Peripartum cardiomyopathy (principal); I34.0 Nonrheumatic mitral (valve) insufficiency; I50.9 Heart failure, unspecified; K75.89 Other specified inflammatory liver diseases
CPT/HCPCS: 36415; 71045; 71046; 71275; 76700; 80048; 80053; 80074; 81003; 81015; 83735; 83880; 84100; 84443; 84484; 85025; 85610; 85730; 86850; 86900; 86901; 87040; 93005; 93306; 93970; 94760; 96365; 96375; 99285; J1265; J1650; J2270; J2405; Q9967

== ENCOUNTER 2018-04-18 19:32 | Emergency (ER) | payer OTHER ==
--- OUTSIDE RECORDS SUMMARY | 2018-04-18 19:34 | XMS REPORT | Clinical Summary ---
:1985 Author Organization [facility] Address [address] [place] [address] Phone Care Team Providers Name Role Phone Unavailable Primary Care Provider Unavailable Allergies No Known Allergies Current Medications Prescription Sig. Disp. Refills Start Date End Date Status acetaminophen Take 2 tablets 30 tablet 0 04/14/2018 04/09/20 Active (TYLENOL) 325 MG (650 mg total) by 19 tablet mouth every 6 (six) hours as needed for up to 360 days. bisacodyl Take 2 tablets 30 tablet 0 04/14/2018 05/14/20 Active (DULCOLAX) 5 mg EC (10 mg total) by 18 tablet mouth daily as needed for Constipation for up to 30 days. ondansetron Take 1 tablet (4 20 tablet 0 04/14/2018 04/21/20 Active (ZOFRAN-ODT) 4 MG mg total) by 18 disintegrating mouth every 12 tablet (twelve) hours as needed for up to 7 days. aspirin 81 MG EC Take 1 tablet (81 30 tablet 0 04/15/2018 04/15/20 Active tablet mg total) by 19 mouth daily. torsemide (DEMADEX) Take 1 tablet (20 30 tablet 0 04/15/2018 04/15/20 Active 20 MG tablet mg total) by 19 mouth daily. amitriptyline Take 1 tablet (10 30 tablet 0 04/14/2018 04/14/20 Active (ELAVIL) 10 MG mg total) by 19 tablet mouth nightly. digoxin (LANOXIN) Take 1 tablet 30 tablet 0 04/15/2018 04/15/20 Active 0.125 MG tablet (125 mcg total) 19 by mouth daily. HYDROcodone-acetami Take 1 tablet by 30 tablet 0 04/14/2018 04/24/20 Active nophen (NORCO mouth every 6 18 5-325) 5-325 mg per (six) hours as tablet needed for up to 10 days. Max Daily Amount: 4 tablets carvedilol (COREG) Take 6.25 mg by 04/14/20 Discontinued 6.25 MG tablet mouth 2 (two) 18 times daily with breakfast and dinner. 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);Peripartum cardiomyopathy;Azalia Greene e on chronic MD Jessica combined systolic Pepito Veloz and diastolic MD Edinson congestive heart Bandeali, Salman failure, NYHA class MD Raissa 4 ([facility]);Superficial venous thrombosis of right upper extremity;Spinal headache;VTE (venous thromboembolism);Hy ponatremia;Transami nitis after 04/17/2017 Social History Tobacco Use Types Packs/Day Years Used Date Former Smoker Cigarettes 0.25 10 04/04/2002 - 04/04/2012 Smokeless Tobacco: Never Used Sex Assigned at Date Recorded Not on file Last Filed Vital Signs Vital Sign Reading Time Taken Blood Pressure 94/51 04/14/2018 3:00 PM CDT Pulse 70 04/14/2018 3:00 PM CDT Temperature 36.3 C (97.4 F) 04/14/2018 3:00 PM CDT Respiratory Rate 18 04/14/2018 3:00 PM CDT Oxygen Saturation 99% 04/14/2018 3:00 PM CDT Inhaled Oxygen Concentration - - Weight 66 kg (145 lb 6.4 oz) 04/14/2018 5:00 AM CDT Height 167.6 cm (5' 6") 04/01/2018 9:38 PM CDT Body Mass Index 23.47 04/14/2018 5:00 AM CDT Plan of Treatment Not on file Procedures Procedure Name Priority Date/Time Associated Diagnosis Comments IMPELLA PERC LVAD 04/02/2018 12:00 AM Congestive heart MCR - IP PROC ONLY CDT failure, unspecified HF chronicity, unspecified heart failure type (HCC) IABP INSERTION MCR - 04/02/2018 12:00 AM Congestive heart IP PROC ONLY CDT failure, unspecified HF chronicity, unspecified heart failure type (HCC) after 04/17/2017 Results CARDIAC CATH REPORT - SCAN (04/17/2018 12:31 PM)RHYTHM STRIP - SCAN (04/17/2018 12:31 PM)Magnesium (04/14/2018 5:18 AM)Only the most recent of15 resultswithin the time period is included. Component Value Ref Range Magnesium 2.1 1.6 - 2.6 mg/dL Specimen Performing Laboratory Blood - Arm, [address] [address] Basic metabolic panel (04/14/2018 5:18 AM)Only the most recent of11 resultswithin the time period is included. Component Value Ref Range Sodium 139 136 - 145 meq/L Potassium 4.3 3.5 - 5.1 meq/L Chloride 102 98 - 107 meq/L CO2 30 (H) 22 - 29 meq/L BUN 19 7 - 21 mg/dL Creatinine 0.79 0.57 - 1.25 mg/dL Glucose 88 70 - 105 mg/dL Calcium 9.1 8.4 - 10.2 mg/dL EGFR 84Comment: ESTIMATED GFR IS NOT ACCURATE mL/min/1.73 sq m CREATININE CLEARANCE IN PREDICTING GLOMERULAR FILTRATION RATE. ESTIMATED GFR IS NOT APPLICABLE FOR DIALYSIS PATIENTS. Specimen Performing Laboratory Blood - Arm, [address] [address] B-type Natriuretic Factor (BNP) (04/13/2018 5:17 AM)Only the most recent of3 resultswithin the time period is included. Component Value Ref Range BNP 117 (H) 0 - 100 pg/mL Specimen Performing Laboratory Blood - Arm, [address] [address] MR brain without IV contrast (04/12/2018 8:51 PM) Specimen Performing Laboratory RIS Narrative FINAL REPORT MRI Brain without contrast Clinical History: Headaches Technique: MRI of the brain utilizing axial T2, FLAIR, GRE, DWI; sagittal and coronal T1-weighted images. Comparisons: None Findings: There is prominent MRI signal dephasing in the right facial and orbital region. There is apparent DWI signal hyperintensity in the right orbital frontal cortex which may represent acute infarction, but is thought to be related to the signal warping. Elsewhere in the brain, there is no other evidence for acute infarct or hemorrhage. There is no significant appearing white matter disease. There is no hydrocephalus or midline shift. There are no extra-axial fluid collections. There are no extra-axial fluid collections. The craniocervical junction is preserved. The major intracranial flow-voids appear patent. IMPRESSION: Prominent MRI signal dephasing in the right face and orbit, likely related to the presence of metal. Apparent DWI signal hyperintensity in the right orbital frontal lobe is thought to be related to this signal dephasing, versus less likely an acute infarct. Clinical correlation is requested. Otherwise age-appropriate appearing noncontrast MRI brain Signed: Varun Lilly MD Report Verified Date/Time:04/12/2018 21:25:41 Reading Location: [facility] Radiology Reading Room Procedure Note Interface, External Ris In - 04/12/2018 9:27 PM CDT FINAL REPORT MRI Brain without contrast Clinical History: Headaches Technique: MRI of the brain utilizing axial T2, FLAIR, GRE, DWI; sagittal and coronal T1-weighted images. Comparisons: None Findings: There is prominent MRI signal dephasing in the right facial and orbital region. There is apparent DWI signal hyperintensity in the right orbital frontal cortex which may represent acute infarction, but is thought to be related to the signal warping. Elsewhere in the brain, there is no other evidence for acute infarct or hemorrhage. There is no significant appearing white matter disease. There is no hydrocephalus or midline shift. There are no extra-axial fluid collections. There are no extra-axial fluid collections. The craniocervical junction is preserved. The major intracranial flow-voids appear patent. IMPRESSION: Prominent MRI signal dephasing in the right face and orbit, likely related to the presence of metal. Apparent DWI signal hyperintensity in the right orbital frontal lobe is thought to be related to this signal dephasing, versus less likely an acute infarct. Clinical correlation is requested. Otherwise age-appropriate appearing noncontrast MRI brain Signed: Varun Lilly MD Report Verified Date/Time: 04/12/2018 21:25:41 Reading Location: [facility] Radiology Reading Room CARDIOGRAM REPORT - SCAN (04/12/2018 6:20 PM)Only the most recent of4 resultswithin the time period is included.Limited 2D Echocardiogram (04/12/2018 3:30 PM)Only the most recent of2 resultswithin the time period is included. Component Value Ref Range Ejection Fraction Specimen Performing Laboratory [facility] ECHO HEARTLAB MKCKESSON CPACS Narrative Transthoracic Echocardiography Report (TTE) Demographics Patient Name Sandra RAMÍREZ of Study 04/12/2018 [id number] GenderFemale Visit Number [id number] RaceCaucasian [id number] Number [id number] Number Date of Birth1985 Referring Physician Evan Murphy MD Age33 year(s) Supervisor [employer] Bruce Mathews [facility] AnalystLanjum Rowan,Interpreting Zayra Bradley [facility] Physician Procedure Type of Study TTE procedure:LIMITED 2D ECHOCARDIOGRAM (Routine) Indications:Known or suspected cardiomyopathy. 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 A moderate circumferential pericardial effusion is present . Pericardial tamponade physiology is not present-no diastolic atrial collapse, normal stroke volume and low RA pressures. The estimated RA pressure by IVC dynamics 5-10mmHg . 2. All of the LV segments are mildly hypokinetic . LVEF by Wallace's method of disk assessment is mildly reduced (40-44%) Previous Study Compared to the previous study 04/07/2018 the size of the pericardial effusion has increased. Overall left ventricular systolic function has increased. Signature Findings Technical Quality: Technically adequate exam. Left Ventricle Limited 2D exam and Doppler exam to address study indication. No evidence of LV hypertrophy. All of the LV segments are mildly hypokinetic . Global LV systolic function mildly reduced . LVEF by Wallace's method of disk assessment is mildly reduced (40-44%) . The LVEF was measured using Wallace's bi-plane method of disk . Left AtriumLA size is normal (16-34 ml/m2) . Right VentricleThe right ventricular chamber size and systolic function are within normal limits. Right Atrium RA cavity size is normal . Aortic Valve Normal AoV structure. Mitral Valve Mild MV leaflet thickening. Tricuspid ValveTV structure is normal. Pulmonic Valve Normal PV structure appears normal by available views. AortaAortic root size (SInus of Valsalva diameter) is normal . PericardiumA moderate-circumferential pericardial effusion is present . Pericardial tamponade physiology is not present-no diastolic atrial collapse, normal stroke volume and low RA pressures. IVC/SVC/PA/PV/PleuralA left pleural effusion is noted. Left pleural effusion appears small in size. The estimated RA pressure by IVC dynamics 5-10mmHg . The inferior vena cava size is normal . The inferior vena cava is adequately visualized. Chambers/Structures Left Atrium LA Volume: 44.35 ml LA Area: 17.14 cm^ 2 LA Vol. Index: 26 ml/m^2 Left Ventricle LVIDd: 4.98 cm LVIDs: 4.15 cm LV Septum Diastolic: 1.03 cm LV PW Diastolic: 1.14 cm LV Length: 8.44 cm LVEDV Wallace's:153.7 ml LV FS: 16.7 % LVESV Wallace's:80.01 ml LVEF Wallace's: 44 % LVEDVI: 89 ml /m^2 LVESVI: 46 ml/m^2 LVOT Diameter: 1.9 cm Aorta Ao Root S of Mary Ann.: 2.93 cm Doppler/Quantitative Measurements LVOT LVOT Diameter: 1.9 cm LVOT Area: 2.84 cm^2 Procedure Note Interface, External Ris In - 04/12/2018 5:40 PM CDT Transthoracic Echocardiography Report (TTE) Demographics Patient Name ROSETTA RAMÍREZ Date of Study 04/12/2018 Gender Female Visit Number [id number] Race Room Number 1135 Number Date of 1985 Referring Physician Evan Murphy MD Age 33 year(s) Supervisor [employer] Bruce Mathews [facility] Tassel Maker Amy Rowan, Interpreting Zayra Bradley [facility] Physician Procedure Type of Study TTE procedure:LIMITED 2D ECHOCARDIOGRAM (Routine) Indications:Known or suspected cardiomyopathy. 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 A moderate circumferential pericardial effusion is present . Pericardial tamponade physiology is not present-no diastolic atrial collapse, normal stroke volume and low RA pressures. The estimated RA pressure by IVC dynamics 5-10mmHg . 2. All of the LV segments are mildly hypokinetic . LVEF by Wallace's method of disk assessment is mildly reduced (40-44%) Previous Study Compared to the previous study 04/07/2018 the size of the pericardial effusion has increased. Overall left ventricular systolic function has increased. Signature Findings Technical Quality: Technically adequate exam. Left Ventricle Limited 2D exam and Doppler exam to address study indication. No evidence of LV hypertrophy. All of the LV segments are mildly hypokinetic . Global LV systolic function mildly reduced . LVEF by Wallace's method of disk assessment is mildly reduced (40-44%) . The LVEF was measured using Wallace's bi-plane method of disk . Left Atrium LA size is normal (16-34 ml/m2) . Right Ventricle The right ventricular chamber size and systolic function are within normal limits. Right Atrium RA cavity size is normal . Aortic Valve Normal AoV structure. Mitral Valve Mild MV leaflet thickening. Tricuspid Valve TV structure is normal. Pulmonic Valve Normal PV structure appears normal by available views. Aorta Aortic root size (SInus of Valsalva diameter) is normal . Pericardium A moderate-circumferential pericardial effusion is present . Pericardial tamponade physiology is not present-no diastolic atrial collapse, normal stroke volume and low RA pressures. IVC/SVC/PA/PV/Pleural A left pleural effusion is noted. Left pleural effusion appears small in size. The estimated RA pressure by IVC dynamics 5-10mmHg . The inferior vena cava size is normal . The inferior vena cava is adequately visualized. Chambers/Structures Left Atrium LA Volume: 44.35 ml LA Area: 17.14 cm^2 LA Vol. Index: 26 ml/m^2 Left Ventricle LVIDd: 4.98 cm LVIDs: 4.15 cm LV Septum Diastolic: 1.03 cm LV PW Diastolic: 1.14 cm LV Length: 8.44 cm LVEDV Wallace's:153.7 ml LV FS: 16.7 % LVESV Wallace's:80.01 ml LVEF Awllace's: 44 % LVEDVI: 89 ml/m^2 LVESVI: 46 ml/m^2 LVOT Diameter: 1.9 cm Aorta Ao Root S of Mary Ann.: 2.93 cm Doppler/Quantitative Measurements LVOT LVOT Diameter: 1.9 cm LVOT Area: 2.84 cm^2 CBC (Hemogram only) (04/12/2018 5:29 AM)Only the most recent of5 resultswithin the time period is included. Component Value Ref Range WBC 7.8 3.5 - 10.5 K/L RBC 3.16 (L) 3.93 - 5.22 M/L Hemoglobin 7.1 (L) 11.2 - 15.7 GM/DL Hematocrit 25.4 (L) 34.1 - 44.9 % MCV 80.4 79.4 - 94.8 fL MCH 22.5 (L) 25.6 - 32.2 pg MCHC 28.0 (L) 32.2 - 35.5 GM/DL RDW 19.3 (H) 11.7 - 14.4 % Platelets 551 (H) 150 - 450 K/CU MM MPV 8.8 (L) 9.4 - 12.3 fL nRBC 0 0 - 0 /100 WBC Specimen Performing Laboratory Blood - Arm, Left [address] [address] Venous doppler arm, right (04/10/2018 1:14 PM) Component Value Ref Range Ejection Fraction Specimen Performing Laboratory [facility] ECHO HEARTLAB MKCKESSON CPACS Impressions Right Impression 1. There is total superficial venous thrombosis in the basilic vein (upper arm). 2. There is no deep venous obstruction in the jugular, subclavian, axillary, brachial, radial or ulnar veins. 3. There is no superficial venous obstruction in the cephalic (forearm) vein. 4. The cephalic (upper arm) vein is not visualized. Left Impression 1. Not ordered. Conclusions Summary Venous duplex imaging and compression of the right upper extremity were performed. The veins were adequately visualized. The right deep venous system was patent and compressible with no evidence of thrombus. The superficial venous system was positive for sub acute venous thrombosis in the basilic (upper arm) vein. Exam was positive for superficial venous thrombosis. Signature Velocities are measured in cm/s ; Diameters are measured in cm Narrative PV LAB - Upper Extremities Veins Demographics Patient NameROSETTA RAMÍREZDate of Study 2017 Age 33 Visit [id number] Gender Female Date of 01/03 Number Referring Pepito Neves Room Number 1135 Physician MD Magdiel [employer] Susan Morelos InterpretingJ. Cristofer Crane RN, Jennifer LUEVANO, RPVI Procedure Type of Study: Veins: Upper Extremities Veins, VENOUS DOPPLER ARM, RIGHT. Indications for Study:Right arm swelling , Arm pain and Warmth. Patient Status:STAT. Study Location:Vascular Lab. Technical Quality:Adequate visualization. Risk Factors History of Disease + +----+ + !Diagnosis!Date!Comments ! + +----+ + !History/Risk Factors:!!CHF, peripartum cardiomyopathy ! + +----+ + Procedure Note Interface, External Ris In - 04/10/2018 7:43 PM CDT PV LAB - Upper Extremities Veins Demographics Patient Name ROSETTA RAMÍREZ Date of Study 04/10/2018 Age 33 Visit Number [id number] Gender Female Date of 1985 Number Referring Pepito Neves Room Number 1135 Physician MD Magdiel [employer] Susan Morelos Interpreting Christelle Crane RN, RVT Physician , RPVI Procedure Type of Study: Veins: Upper Extremities Veins, VENOUS DOPPLER ARM, RIGHT. Indications for Study:Right arm swelling , Arm pain and Warmth. Patient Status:STAT. Study Location:Vascular Lab. Technical Quality:Adequate visualization. Risk Factors History of Disease + +----+ + !Diagnosis !Date!Comments ! + +----+ + !History/Risk Factors: ! !CHF, peripartum cardiomyopathy ! + +----+ + Impressions Right Impression 1. There is total superficial venous thrombosis in the basilic vein (upper arm). 2. There is no deep venous obstruction in the jugular, subclavian, axillary, brachial, radial or ulnar veins. 3. There is no superficial venous obstruction in the cephalic (forearm) vein. 4. The cephalic (upper arm) vein is not visualized. Left Impression 1. Not ordered. Conclusions Summary Venous duplex imaging and compression of the right upper extremity were performed. The veins were adequately visualized. The right deep venous system was patent and compressible with no evidence of thrombus. The superficial venous system was positive for sub acute venous thrombosis in the basilic (upper arm) vein. Exam was positive for superficial venous thrombosis. Signature Velocities are measured in cm/s ; Diameters are measured in cm CBC with platelet count + automated diff (04/10/2018 2:10 AM)Only the most recent of6 resultswithin the time period is included. Component Value Ref Range WBC 8.5 3.5 - 10.5 K/L RBC 3.53 (L) 3.93 - 5.22 M/L Hemoglobin 7.9 (L) 11.2 - 15.7 GM/DL Hematocrit 27.8 (L) 34.1 - 44.9 % MCV 78.8 (L) 79.4 - 94.8 fL MCH 22.4 (L) 25.6 - 32.2 pg MCHC 28.4 (L) 32.2 - 35.5 GM/DL RDW 18.0 (H) 11.7 - 14.4 % Platelets 587 (H) 150 - 450 K/CU MM MPV 8.8 (L) 9.4 - 12.3 fL nRBC 0 0 - 0 /100 WBC % Neutros 61 % % Lymphs 23 % % Monos 10 % % Eos 4 % % Baso 0 % # Neutros 5.22 1.56 - 6.13 K/L # Lymphs 1.93 1.18 - 3.74 K/L # Monos 0.89 (H) 0.24 - 0.36 K/L # Eos 0.37 (H) 0.04 - 0.36 K/L # Baso 0.03 0.01 - 0.08 K/L Immature Granulocytes-Relative 1 0 - 1 % Specimen Performing Laboratory Blood [facility] [address] [place] [address], [place] [address] CBC with platelet count + automated diff (04/10/2018 2:10 AM)Only the most recent of6 resultswithin the time period is included. Specimen Performing Laboratory Blood Narrative The following orders were created for panel order CBC with platelet count + automated diff. Procedure Abnormality Status --------- ------ CBC with platelet count ...[[id number]]AbnormalFinal result Please view results for these tests on the individual orders. ECG 12 lead (04/10/2018 1:31 AM)Only the most recent of4 resultswithin the time period is included. Specimen Performing Laboratory GE MUSE Narrative Ventricular Rate 84 BPM Atrial Rate 84 BPM P-R Interval 136 ms QRS Duration 88 ms Q-T Interval 412 ms QTC Calculation(Bazett) 486 ms P Ames 53 degrees R Ames 105 degrees T Ames 189 degrees Normal sinus rhythm Possible Left atrial enlargement Rightward axis Cannot rule out Anterior infarct , age undetermined ST & T wave abnormality, consider inferolateral ischemia Prolonged QT Abnormal ECG When compared with ECG of 06-APR-2018 17:56, No significant change was found Confirmed by MD RODRIGES YOCHAI ([id number]) on 04/11/2018 6:51:18 AM Procedure Note Interface, External Ris In - 04/11/2018 6:51 AM CDT Ventricular Rate 84 BPM Atrial Rate 84 BPM P-R Interval 136 ms QRS Duration 88 ms Q-T Interval 412 ms QTC Calculation(Bazett) 486 ms P Ames 53 degrees R Ames 105 degrees T Ames 189 degrees Normal sinus rhythm Possible Left atrial enlargement Rightward axis Cannot rule out Anterior infarct , age undetermined ST & T wave abnormality, consider inferolateral ischemia Prolonged QT Abnormal ECG When compared with ECG of 06-APR-2018 17:56, No significant change was found Confirmed by MD RODRIGES YOCHAI ([id number]) on 04/11/2018 6:51:18 AM Potassium (04/08/2018 4:09 PM)Only the most recent of8 resultswithin the time period is included. Component Value Ref Range Potassium 3.5 3.5 - 5.1 meq/L Specimen Performing Laboratory Blood [facility] [address] [address] 2D Echo W/Doppler(CW/PW/Color) (04/07/2018 1:48 PM)Only the most recent of2 resultswithin the time period is included. Component Value Ref Range Ejection Fraction Specimen Performing Laboratory [facility] ECHO HEARTLAB ARIS CPACS Narrative Transthoracic Echocardiography Report (TTE) Demographics Patient Name ROSETTA RAMÍREZ Date of Study 04/07/2018 [id number] Female Visit Number [id number] Unknown Accession Number [id number] Room Number C832 Date of Birth1985Referring Physician Binh Edmondson MD Age33 year(s)Supervisor [employer] Adriano Emmanuel AnalystAlex Roverto InterpretingKeron Berg MD Physician Procedure Type of Study TTE procedure:2DECHO W DOPPLER(CW/PW/COLOR) (STAT) Indications:Shortness of breath. Clinical History HGB 8.3 HCT 29.5 % CHF IABP 04/06/18 Height: 66 inches Weight: 66.22 kg (146 lbs) BSA: 1.75 m^2 BMI: 23.56 kg/m^2 HR: 103 bpm BP: 88/50 mmHg Summary 1. The LV is moderately dilated. LV function is severely depressed. LVEF is 25-29% 2. Diastology: Grade 2 diastolic dysfunction noted. 3. Normal RV size. Depressed RV function 4. No significant valvular heart disease 5. Trace TR. Estimated PASP is 25-30 mm Hg 6. Small pericardial effusion Previous Study Compared to the previous study, the LVEF is slightly lower. Signature Findings Technical Quality: Technically adequate exam. Left Ventricle Normal LV wall thickness. All of the LV segments are severely hypokinetic . Estimated LVEF by qualitative assessment is severely reduced (25-29%) . Grade 2 diastolic dysfunction (moderately increased LA pressure). The left ventricle is chamber size (by vol index) is moderately enlarged (female - LVED vol -71-80ml/m2) . Left AtriumLA size is [id number] enlarged . Right VentricleRV chamber size is moderately enlarged . Global RV systolic function is depressed . Aortic Valve Mild AoV cusp thickening. Mitral Valve Mild MV leaflet thickening. Moderate mitral regurgitation. Tricuspid ValveA trace of tricuspid regurgitation. Estimated peak systolic PA pressure is 25-30 mmHg . Pulmonic Valve Normal PV structure and function by limited views and Doppler. AortaAortic root size (SInus of Valsalva diameter) is normal . PericardiumA small pericardial effusion is present . IVC/SVC/PA/PV/PleuralThe estimated RA pressure by IVC dynamics 5-10mmHg . Chambers/Structures Left Atrium LA Dimension: 3.94 cmLA Area: 19.08 cm^2 LA Volume: 72.96 ml LA Vol. Index: 42 ml/m^2 Left Ventricle LVIDd: 6.07 cm LV Septum Diastolic: 0.88 cm LV PW Diastolic: 1.06 cm LV PW Systolic: 1.1 cm LVEDV Wallace's:138.34 ml LVESV Wallace's:98.11 mlLVEDVI: 79 ml/ m^2 LVEF Wallace's: 29.1 %LVESVI: 56 ml/m^2 LVOT Diameter: 1.88 cm Aorta Ao Root S of Mary Ann.: 3.06 cm Doppler/Quantitative Measurements LVOT Peak Velocity: 1.28 m/s Peak Gradient: 6.58 mmHg Mean Velocity: 0.73 m/s Mean Gradient: 2.65 mmHg LVOT Diameter: 1.88 cmLVOT VTI: 16.51 cm LVOT Area: 2.78 cm^2LVOT SV:45.81 ml LVOT CO: 4.72 l/min LVOT CI: 2.7 l/min/m^2 Procedure Note Interface, External Ris In - 04/07/2018 5:15 PM CDT Transthoracic Echocardiography Report (TTE) Demographics Patient Name ROSETTA RAMÍREZ Date of Study 04/07/2018 Gender Female Visit Number [id number] Race Unknown Accession Number [id number] Room Number C832 Date of 1985 Referring Physician Binh Edmondson MD Age 33 year(s) [employer] Emmanuel [employer] Maker Curtis Layne Interpreting Keron Berg MD Physician Procedure Type of Study TTE procedure:2DECHO W DOPPLER(CW/PW/COLOR) (STAT) Indications:Shortness of breath. Clinical History HGB 8.3 HCT 29.5 % CHF IABP 04/06/18 Height: 66 inches Weight: 66.22 kg (146 lbs) BSA: 1.75 m^2 BMI: 23.56 kg/m^2 HR: 103 bpm BP: 88/50 mmHg Summary 1. The LV is moderately dilated. LV function is severely depressed. LVEF is 25-29% 2. Diastology: Grade 2 diastolic dysfunction noted. 3. Normal RV size. Depressed RV function 4. No significant valvular heart disease 5. Trace TR. Estimated PASP is 25-30 mm Hg 6. Small pericardial effusion Previous Study Compared to the previous study, the LVEF is slightly lower. Signature Findings Technical Quality: Technically adequate exam. Left Ventricle Normal LV wall thickness. All of the LV segments are severely hypokinetic . Estimated LVEF by qualitative assessment is severely reduced (25-29%) . Grade 2 diastolic dysfunction (moderately increased LA pressure). The left ventricle is chamber size (by vol index) is moderately enlarged (female - LVED vol -71-80ml/m2). Left Atrium LA size is [id number] enlarged . Right Ventricle RV chamber size is moderately enlarged . Global RV systolic function is depressed . Aortic Valve Mild AoV cusp thickening. Mitral Valve Mild MV leaflet thickening. Moderate mitral regurgitation. Tricuspid Valve A trace of tricuspid regurgitation. Estimated peak systolic PA pressure is 25-30 mmHg . Pulmonic Valve Normal PV structure and function by limited views and Doppler. Aorta Aortic root size (SInus of Valsalva diameter) is normal . Pericardium A small pericardial effusion is present . IVC/SVC/PA/PV/Pleural The estimated RA pressure by IVC dynamics 5-10mmHg . Chambers/Structures Left Atrium LA Dimension: 3.94 cm LA Area: 19.08 cm^2 LA Volume: 72.96 ml LA Vol. Index: 42 ml/m^2 Left Ventricle LVIDd: 6.07 cm LV Septum Diastolic: 0.88 cm LV PW Diastolic: 1.06 cm LV PW Systolic: 1.1 cm LVEDV Wallace's:138.34 ml LVESV Wallace's:98.11 ml LVEDVI: 79 ml/m^2 LVEF Wallace's: 29.1 % LVESVI: 56 ml/m^2 LVOT Diameter: 1.88 cm Aorta Ao Root S of Mary Ann.: 3.06 cm Doppler/Quantitative Measurements LVOT Peak Velocity: 1.28 m/s Peak Gradient: 6.58 mmHg Mean Velocity: 0.73 m/s Mean Gradient: 2.65 mmHg LVOT Diameter: 1.88 cm LVOT VTI: 16.51 cm LVOT Area: 2.78 cm^2 LVOT SV:45.81 ml LVOT CO: 4.72 l/min LVOT CI: 2.7 l/min/m^2 Lactic acid, venous, whole blood (04/07/2018 8:04 AM) Component Value Ref Range Lactate, Venous 0.7 0.5 - 2.2 mmol/L Specimen [place] [address] Narrative Effective 12/03/2015: Units/Reference Range Change New: 0.5-2.2 mmol/LPrevious: 5-20 mg/dL XR chest 1 view portable / bedside (04/07/2018 5:15 AM)Only the most recent of7 resultswithin the time period is included. Specimen Performing Laboratory GE RIS Narrative FINAL REPORT CLINICAL HISTORY: IABP/PA Cath Position Monitoring TECHNIQUE: 1 view of the chest. COMPARISON: 04/06/2018 IMPRESSION: The tip of the IABP catheter is no longer seen, and clinical correlation is requested. The Ronda-Malorie catheter has been removed. Retrocardiac left mid and lower lung consolidation is unchanged. Patchy left upper and right lower lung airspace opacities have decreased. The cardiomediastinal silhouette is magnified by technique. Signed: Varun Lilly MD Report Verified Date/Time:04/07/2018 08:02:20 Reading Location: [facility] Radiology Reading Room Procedure Note Interface, External Ris In - 04/07/2018 8:04 AM CDT FINAL REPORT CLINICAL HISTORY: IABP/PA Cath Position Monitoring TECHNIQUE: 1 view of the chest. COMPARISON: 04/06/2018 IMPRESSION: The tip of the IABP catheter is no longer seen, and clinical correlation is requested. The Ronda-Malorie catheter has been removed. Retrocardiac left mid and lower lung consolidation is unchanged. Patchy left upper and right lower lung airspace opacities have decreased. The cardiomediastinal silhouette is magnified by technique. Signed: Varun Lilly MD Report Verified Date/Time: 04/07/2018 08:02:20 Reading Location: [facility] Radiology Reading Room Calcium, Ionized (04/06/2018 11:22 PM)Only the most recent of6 resultswithin the time period is included. Component Value Ref Range Calcium, Ion 1.11 (L) 1.12 - 1.27 mmol/L pH, Blood 7.48 Specimen Performing Laboratory Blood - Arm, [place] [address] Narrative Check serum Ionized Calcium level after 4 hours after IV Calcium replacement. Phosphorus (04/06/2018 11:22 PM)Only the most recent of4 resultswithin the time period is included. Component Value Ref Range Phosphorus 4.4 2.3 - 4.7 mg/dL Specimen Performing Laboratory Blood - Arm, Right [facility] [address] Narrative Check Serum Phosphorus level 4 hours after IV phosphorus replacement or 8 hours after PO replacement completed. 8 hours after PO replacement completed Troponin I (04/06/2018 6:13 PM)Only the most recent of2 resultswithin the time period is included. Component Value Ref Range Troponin I 0.06 (H) 0.00 - 0.03 ng/mL Specimen Performing Laboratory Blood - Arm, [address] [address] Narrative Troponin I (TnI) levels must be interpreted in the context of the presenting symptoms and the clinical findings. Elevated TnI levels indicate myocardial damage, but are not specific for ischemic heart disease. Elevated TnI levels are seen in patients with other cardiac conditions (including myocarditis and congestive heart failure), and slight TnI elevations occur in patients with other conditions, including sepsis, renal failure, acidosis, acute neurological disease, and persistent tachyarrhythmia. Iron, TIBC, % sat. (without ferritin) (04/06/2018 3:12 AM) Component Value Ref Range Iron 24 (L) 40 - 160 ug/dL TIBC 335 250 - 450 ug/dL Iron % Saturation 7 (L) 20 - 55 % Specimen Performing Laboratory Blood [address] [address] aPTT (04/06/2018 3:12 AM)Only the most recent of10 resultswithin the time period is included. Component Value Ref Range PTT 68.8 (H) 22.5 - 36.0 seconds Specimen Performing Laboratory Blood [address] [address] Ferritin (04/06/2018 3:12 AM) Component Value Ref Range Ferritin 74 5 - 275 ng/mL Specimen Performing Laboratory Blood [address] [address] Oxygen saturation, measured (04/04/2018 4:52 AM)Only the most recent of5 resultswithin the time period is included. Component Value Ref Range O2 Saturation (Measured) 58.7 % Specimen Performing Laboratory Blood [address] [address] Comprehensive metabolic panel (04/04/2018 4:49 AM)Only the most recent of4 resultswithin the time period is included. Component Value Ref Range Protein, Total 6.1 6.0 - 8.3 gm/dL Albumin 3.0 (L) 3.5 - 5.0 g/dL Alkaline Phosphatase 129 40 - 150 U/L Total Bilirubin 0.7 0.2 - 1.2 mg/dL Sodium 135 (L) 136 - 145 meq/L Potassium 4.0 3.5 - 5.1 meq/L Chloride 96 (L) 98 - 107 meq/L CO2 30 (H) 22 - 29 meq/L BUN 11 7 - 21 mg/dL Creatinine 0.80 0.57 - 1.25 mg/dL Glucose 122 (H) 70 - 105 mg/dL Calcium 9.2 8.4 - 10.2 mg/dL AST 47 (H) 5 - 34 U/L ALT 134 (H) 6 - 55 U/L EGFR 83Comment: ESTIMATED GFR IS NOT ACCURATE mL/min/1.73 sq m CREATININE CLEARANCE IN PREDICTING GLOMERULAR FILTRATION RATE. ESTIMATED GFR IS NOT APPLICABLE FOR DIALYSIS PATIENTS. Specimen Performing Laboratory Blood [address] [address] Narrative Check Serum Phosphorus level 4 hours after IV phosphorus replacement or 8 hours after PO replacement completed. Urinalysis w/Microscopic + Reflex to Culture (04/03/2018 8:25 AM) Component Value Ref Range Color, UA Light Yellow Clarity, UA Clear Specific [place], UA 1.007 1.001 - 1.035 pH, UA 6.5 5.0 - 8.0 Protein, UA Negative Negative Glucose, UA Negative Negative Ketones, UA Negative Negative Bilirubin, UA Negative Negative Blood, UA Negative Negative Nitrite, UA Negative Negative Leukocytes, UA Negative Negative Urobilinogen, UA 0.2 0.2 - 1.0 mg/dL RBC, UA <1 /HPF WBC, UA 0 /HPF Specimen Source Specimen Performing Laboratory Urine - Urine, Sarkar [address] [address] Blood culture (04/03/2018 8:25 AM)Only the most recent of2 resultswithin the time period is included. Component Value Ref Range Result No growth in 5 days Specimen Performing Laboratory Blood - Arm, Left [address] [address] Creatine Kinase (CK) (04/02/2018 9:03 PM) Component Value Ref Range Total CK 90 29 - 200 U/L Specimen Performing Laboratory Blood [address] [address] Narrative Check Serum Phosphorus level 4 hours after IV phosphorus replacement or 8 hours after PO replacement completed. Check Serum Potassium level 2 hours after oral potassium replacement completed or 30 min after intravenous potassium replacement. Hemoglobin and hematocrit (04/02/2018 8:05 PM) Component Value Ref Range Hemoglobin 10.3 (L) 11.2 - 15.7 GM/DL Hematocrit 35.2 34.1 - 44.9 % Specimen Performing Laboratory Blood [address] [address] Blood gas, venous (04/01/2018 11:43 PM) Component Value Ref Range pH, Dane 7.43 (H) 7.32 - 7.42 pCO2, Dane 47 41 - 51 mmHg pO2, Dane 23 (L) 25 - 40 mmHg O2 Sat, Dane 40.9 40.0 - 70.0 % HCO3, Dane 30 (H) 21 - 29 mmol/L Base Excess, Dane 5.1 (H) -2.0 - 3.0 mmol/L Patient Temperature 37.0 C FIO2 100.0 % Specimen Performing Laboratory Blood - Central Venous Line [address] [address] Prothrombin time/INR (04/01/2018 11:33 PM) Component Value Ref Range Protime 13.9 11.7 - 14.7 seconds INR 1.1 <=5.9 Specimen Performing Laboratory Blood [address] [address] Narrative RECOMMENDED COUMADIN/WARFARIN INR THERAPY RANGES STANDARD DOSE: 2.0 - 3.0 Includes: PROPHYLAXIS for venous thrombosis, systemic embolization; TREATMENT for venous thrombosis and/or pulmonary embolus. HIGH RISK: Target INR is 2.5-3.5 for patients with mechanical heart valves. Hemoglobin A1c (04/01/2018 11:33 PM) Component Value Ref Range Hemoglobin A1C 5.6 4.3 - 6.1 % Specimen Performing Laboratory Blood [address] [address] Lipid panel (04/01/2018 11:33 PM) Component Value Ref Range Triglycerides 129 mg/dL Cholesterol 124 mg/dL HDL 19 mg/dL LDL Calculated 79 mg/dL Specimen Performing Laboratory Blood [facility] [address] [address] Narrative Triglyceride Reference Range: Low Risk <150 [id number] High Risk 200-499 Very High Risk>=500 Cholesterol Reference Range: Low Risk <200 [id number] High Risk>240 HDL Cholesterol Reference Range: Low Risk >=60 High Risk <40 LDL Cholesterol Reference Range: Optimal<100 Near [id number] Very High >=190 after 04/17/2017
--- OUTSIDE RECORDS SUMMARY | 2018-04-18 19:35 | XMS REPORT ---
:1985 [facility] [address] [place] [address] Care Team Providers Name Role Phone NISejalLACHELLE Unavailable Unavailable Problems This patient has no known problems. Allergies, Adverse Reactions, Alerts This patient has no known allergies or adverse reactions. Medications This patient has no known medications. Results Test Description Test Time Test Comments Text Results Atomic Results Result Comments MAGNESIUM 2018-04-14 07:12:00 Test Item Value Reference Range Comments MAGNESIUM (BEAKER) (test rsrc=534) 2.1 mg/dL 1.6-2.6 BASIC METABOLIC [id number] 07:12:00 Test Item Value Reference Range Comments SODIUM (BEAKER) (test 139 meq/L 136-145 hyhq=377) POTASSIUM (BEAKER) (test 4.3 meq/L 3.5-5.1 eenw=271) CHLORIDE (BEAKER) (test 102 meq/L 98-107 ejuw=361) CO2 (BEAKER) (test 30 meq/L 22-29 tcda=363) BLOOD UREA NITROGEN 19 mg/dL 7-21 (BEAKER) (test mdsr=662) CREATININE (BEAKER) (test 0.79 mg/dL 0.57-1.25 zkfa=777) GLUCOSE RANDOM (BEAKER) 88 mg/dL 70-105 (test huak=877) CALCIUM (BEAKER) (test 9.1 mg/dL 8.4-10.2 nase=478) EGFR (BEAKER) (test 84 mL/min/1.73 sq m ESTIMATED GFR IS NOT zuzr=5886) ACCURATE CREATININE CLEARANCE IN PREDICTING GLOMERULAR FILTRATION RATE. ESTIMATED GFR IS NOT APPLICABLE FOR DIALYSIS PATIENTS. B-TYPE NATRIURETIC FACTOR (BNP)2018-04-13 06:48:00 Test Item Value Reference Range Comments B-TYPE NATRIURETIC PEPTIDE (BEAKER) (test 117 pg/mL 0-100 rpsw=910) [id number] 06:44:00 Test Item Value Reference Range Comments MAGNESIUM (BEAKER) (test bnou=872) 2.2 mg/dL 1.6-2.6 BASIC METABOLIC [id number] 06:44:00 Test Item Value Reference Range Comments SODIUM (BEAKER) (test 136 meq/L 136-145 byse=446) POTASSIUM (BEAKER) (test 4.1 meq/L 3.5-5.1 qvxf=668) CHLORIDE (BEAKER) (test 100 meq/L 98-107 keqq=137) CO2 (BEAKER) (test 27 meq/L 22-29 actx=054) BLOOD UREA NITROGEN 18 mg/dL 7-21 (BEAKER) (test itdy=837) CREATININE (BEAKER) (test 0.74 mg/dL 0.57-1.25 tnzr=668) GLUCOSE RANDOM (BEAKER) 104 mg/dL 70-105 (test eswp=358) CALCIUM (BEAKER) (test 9.3 mg/dL 8.4-10.2 uvnh=509) EGFR (BEAKER) (test 91 mL/min/1.73 sq m ESTIMATED GFR IS NOT jfak=1760) ACCURATE CREATININE CLEARANCE IN PREDICTING GLOMERULAR FILTRATION RATE. ESTIMATED GFR IS NOT APPLICABLE FOR DIALYSIS PATIENTS. MR, BRAIN, WITHOUT [id number] 21:25:00Reason for exam:-> HeadachesWhat is the patient's sedation requirement?->No SedationIs the patient claustrophobic?->NoIs the patient ?->NoFINAL REPORT MRI Brain without contrast Clinical History: [...] the signal warping. Elsewhere in the brain, thereis no other evidence for acute infarct or hemorrhage. There is no significant appearing white matterdisease. There is no hydrocephalus or midline shift. There are no extra-axial fluid collections. There are no extra- axial fluid collections. The craniocervical junction is preserved. [...] age-appropriate appearing noncontrast MRI brain Signed: Varun Brennaneport Verified Date/Time: 2017 21:25:41 Reading Location: [facility] Radiology Reading Room [facility] METABOLIC [id number] 06:00:00 Test Item Value Reference Range Comments SODIUM (BEAKER) (test 139 meq/L 136-145 cidk=785) POTASSIUM (BEAKER) (test 4.1 meq/L 3.5-5.1 lnte=358) CHLORIDE (BEAKER) (test 101 meq/L 98-107 hzwy=679) CO2 (BEAKER) (test 31 meq/L 22-29 dzdv=771) BLOOD UREA NITROGEN 16 mg/dL 7-21 (BEAKER) (test wrcl=973) CREATININE (BEAKER) (test 0.75 mg/dL 0.57-1.25 sqtd=525) GLUCOSE RANDOM (BEAKER) 108 mg/dL 70-105 (test lyhy=427) CALCIUM (BEAKER) (test 9.4 mg/dL 8.4-10.2 dbkl=586) EGFR (BEAKER) (test 90 mL/min/1.73 sq m ESTIMATED GFR IS NOT rhov=3637) ACCURATE CREATININE CLEARANCE IN PREDICTING GLOMERULAR FILTRATION RATE. ESTIMATED GFR IS NOT APPLICABLE FOR DIALYSIS PATIENTS. CBC (HEMOGRAM ONLY)2018-04-12 05:48:00 Test Item Value Reference Range Comments WHITE BLOOD CELL COUNT (BEAKER) (test tldf=503) 7.8 K/ L 3.5-10.5 RED BLOOD CELL COUNT (BEAKER) (test iaci=431) 3.16 M/ L 3.93-5.22 HEMOGLOBIN (BEAKER) (test zwmk=858) 7.1 GM/DL 11.2-15.7 HEMATOCRIT (BEAKER) (test bich=207) 25.4 % 34.1-44.9 MEAN CORPUSCULAR VOLUME (BEAKER) (test ithl=786) 80.4 fL 79.4-94.8 MEAN CORPUSCULAR HEMOGLOBIN (BEAKER) (test 22.5 pg 25.6-32.2 csxo=351) MEAN CORPUSCULAR HEMOGLOBIN CONC (BEAKER) (test 28.0 GM/DL 32.2-35.5 hjto=474) RED CELL DISTRIBUTION WIDTH (BEAKER) (test 19.3 % 11.7-14.4 gudr=780) PLATELET COUNT (BEAKER) (test wvad=462) 551 K/CU MM 150-450 MEAN PLATELET VOLUME (BEAKER) (test trxd=382) 8.8 fL 9.4-12.3 NUCLEATED RED BLOOD CELLS (BEAKER) (test 0 /100 WBC 0-0 urms=976) BASIC METABOLIC [id number] 04:37:00 Test Item Value Reference Range Comments SODIUM (BEAKER) (test 135 meq/L 136-145 tqjb=767) POTASSIUM (BEAKER) (test 3.8 meq/L 3.5-5.1 uqmw=598) CHLORIDE (BEAKER) (test 98 meq/L 98-107 lcwv=702) CO2 (BEAKER) (test 27 meq/L 22-29 ohij=819) BLOOD UREA NITROGEN 14 mg/dL 7-21 (BEAKER) (test mcxj=057) CREATININE (BEAKER) (test 0.72 mg/dL 0.57-1.25 pegv=219) GLUCOSE RANDOM (BEAKER) 109 mg/dL 70-105 (test cdbs=361) CALCIUM (BEAKER) (test 9.2 mg/dL 8.4-10.2 gjqa=456) EGFR (BEAKER) (test 94 mL/min/1.73 sq m ESTIMATED GFR IS NOT hrhn=5621) ACCURATE CREATININE CLEARANCE IN PREDICTING GLOMERULAR FILTRATION RATE. ESTIMATED GFR IS NOT APPLICABLE FOR DIALYSIS PATIENTS. BASIC METABOLIC [id number] 03:02:00 Test Item Value Reference Range Comments SODIUM (BEAKER) (test 136 meq/L 136-145 dlkq=161) POTASSIUM (BEAKER) (test 3.4 meq/L 3.5-5.1 rmlt=138) CHLORIDE (BEAKER) (test 97 meq/L 98-107 ntzp=063) CO2 (BEAKER) (test 28 meq/L 22-29 ttay=915) BLOOD UREA NITROGEN 19 mg/dL 7-21 (BEAKER) (test sfxy=809) CREATININE (BEAKER) (test 0.84 mg/dL 0.57-1.25 glsu=150) GLUCOSE RANDOM (BEAKER) 121 mg/dL 70-105 (test bjbt=727) CALCIUM (BEAKER) (test 9.2 mg/dL 8.4-10.2 nkug=174) EGFR (BEAKER) (test 79 mL/min/1.73 sq m ESTIMATED GFR IS NOT bfme=7924) ACCURATE CREATININE CLEARANCE IN PREDICTING GLOMERULAR FILTRATION RATE. ESTIMATED GFR IS NOT APPLICABLE FOR DIALYSIS PATIENTS. CBC W/PLT COUNT & AUTO [id number] 02:49:00 Test Item Value Reference Range Comments WHITE BLOOD CELL COUNT (BEAKER) (test zvrr=503) 8.5 K/ L 3.5-10.5 RED BLOOD CELL COUNT (BEAKER) (test uksc=421) 3.53 M/ L 3.93-5.22 HEMOGLOBIN (BEAKER) (test jrlh=756) 7.9 GM/DL 11.2-15.7 HEMATOCRIT (BEAKER) (test wyhr=714) 27.8 % 34.1-44.9 MEAN CORPUSCULAR VOLUME (BEAKER) (test ahhz=240) 78.8 fL 79.4-94.8 MEAN CORPUSCULAR HEMOGLOBIN (BEAKER) (test 22.4 pg 25.6-32.2 nxik=306) MEAN CORPUSCULAR HEMOGLOBIN CONC (BEAKER) (test 28.4 GM/DL 32.2-35.5 sgeu=044) RED CELL DISTRIBUTION WIDTH (BEAKER) (test 18.0 % 11.7-14.4 wxii=578) PLATELET COUNT (BEAKER) (test bnpt=796) 587 K/CU MM 150-450 MEAN PLATELET VOLUME (BEAKER) (test jmwc=177) 8.8 fL 9.4-12.3 NUCLEATED RED BLOOD CELLS (BEAKER) (test 0 /100 WBC 0-0 dvgq=550) NEUTROPHILS RELATIVE PERCENT (BEAKER) (test 61 % jnwx=240) LYMPHOCYTES RELATIVE PERCENT (BEAKER) (test 23 % zzbk=653) MONOCYTES RELATIVE PERCENT (BEAKER) (test 10 % jxcm=605) EOSINOPHILS RELATIVE PERCENT (BEAKER) (test 4 % woqd=928) BASOPHILS RELATIVE PERCENT (BEAKER) (test 0 % ixas=260) NEUTROPHILS ABSOLUTE COUNT (BEAKER) (test 5.22 K/ L 1.56-6.13 akys=734) LYMPHOCYTES ABSOLUTE COUNT (BEAKER) (test 1.93 K/ L 1.18-3.74 bwvp=063) MONOCYTES ABSOLUTE COUNT (BEAKER) (test 0.89 K/ L 0.24-0.36 ymyb=928) EOSINOPHILS ABSOLUTE COUNT (BEAKER) (test 0.37 K/ L 0.04-0.36 usbv=938) BASOPHILS ABSOLUTE COUNT (BEAKER) (test 0.03 K/ L 0.01-0.08 mnkh=347) IMMATURE GRANULOCYTES-RELATIVE PERCENT (BEAKER) 1 % 0-1 (test oyal=2996) BASIC METABOLIC [id number] 06:58:00 Test Item Value Reference Range Comments SODIUM (BEAKER) (test 136 meq/L 136-145 ftfj=429) POTASSIUM (BEAKER) (test 3.7 meq/L 3.5-5.1 bszy=463) CHLORIDE (BEAKER) (test 97 meq/L 98-107 ahdi=087) CO2 (BEAKER) (test 30 meq/L 22-29 pkuj=618) BLOOD UREA NITROGEN 17 mg/dL 7-21 (BEAKER) (test ahln=414) CREATININE (BEAKER) (test 0.76 mg/dL 0.57-1.25 uwpz=192) GLUCOSE RANDOM (BEAKER) 99 mg/dL 70-105 (test fuhf=088) CALCIUM (BEAKER) (test 9.4 mg/dL 8.4-10.2 jdrm=054) EGFR (BEAKER) (test 88 mL/min/1.73 sq m ESTIMATED GFR IS NOT myde=4200) ACCURATE CREATININE CLEARANCE IN PREDICTING GLOMERULAR FILTRATION RATE. ESTIMATED GFR IS NOT APPLICABLE FOR DIALYSIS PATIENTS. CBC (HEMOGRAM ONLY)2018-04-09 06:42:00 Test Item Value Reference Range Comments WHITE BLOOD CELL COUNT (BEAKER) (test auxk=751) 7.6 K/ L 3.5-10.5 RED BLOOD CELL COUNT (BEAKER) (test uylz=852) 3.55 M/ L 3.93-5.22 HEMOGLOBIN (BEAKER) (test xxiu=840) 7.8 GM/DL 11.2-15.7 HEMATOCRIT (BEAKER) (test wgvo=622) 27.7 % 34.1-44.9 MEAN CORPUSCULAR VOLUME (BEAKER) (test mdnb=463) 78.0 fL 79.4-94.8 MEAN CORPUSCULAR HEMOGLOBIN (BEAKER) (test 22.0 pg 25.6-32.2 pbgu=972) MEAN CORPUSCULAR HEMOGLOBIN CONC (BEAKER) (test 28.2 GM/DL 32.2-35.5 yelg=846) RED CELL DISTRIBUTION WIDTH (BEAKER) (test 17.6 % 11.7-14.4 gqai=032) PLATELET COUNT (BEAKER) (test rmed=380) 485 K/CU MM 150-450 MEAN PLATELET VOLUME (BEAKER) (test fjnf=907) 9.0 fL 9.4-12.3 NUCLEATED RED BLOOD CELLS (BEAKER) (test 0 /100 WBC 0-0 tqkw=548) BLOOD [id number] 04:53:00 Test Item Value Reference Range Comments CULTURE (BEAKER) (test alip=8424) No growth in 5 days BLOOD [id number] 04:53:00 Test Item Value Reference Range Comments CULTURE (BEAKER) (test sfte=5088) No growth in 5 days [id number] 16:24:00 Test Item Value Reference Range Comments POTASSIUM (BEAKER) (test lptd=836) 3.5 meq/L 3.5-5.1 [id number] 11:38:00 Test Item Value Reference Range Comments MAGNESIUM (BEAKER) (test uhbi=821) 2.1 mg/dL 1.6-2.6 BASIC METABOLIC [id number] 06:05:00 Test Item Value Reference Range Comments SODIUM (BEAKER) (test 137 meq/L 136-145 tkyy=869) POTASSIUM (BEAKER) (test 3.7 meq/L 3.5-5.1 woox=474) CHLORIDE (BEAKER) (test 95 meq/L 98-107 rcuk=420) CO2 (BEAKER) (test 31 meq/L 22-29 idzp=354) BLOOD UREA NITROGEN 19 mg/dL 7-21 (BEAKER) (test cpps=210) CREATININE (BEAKER) (test 0.84 mg/dL 0.57-1.25 iqiq=041) GLUCOSE RANDOM (BEAKER) 118 mg/dL 70-105 (test opsr=901) CALCIUM (BEAKER) (test 9.6 mg/dL 8.4-10.2 vpjs=388) EGFR (BEAKER) (test 79 mL/min/1.73 sq m ESTIMATED GFR IS NOT scok=6304) ACCURATE CREATININE CLEARANCE IN PREDICTING GLOMERULAR FILTRATION RATE. ESTIMATED GFR IS NOT APPLICABLE FOR DIALYSIS PATIENTS. B-TYPE NATRIURETIC FACTOR (BNP)2018-04-08 05:52:00 Test Item Value Reference Range Comments B-TYPE NATRIURETIC PEPTIDE (BEAKER) (test 281 pg/mL 0-100 nihi=496) B-TYPE NATRIURETIC FACTOR (BNP)2018-04-07 15:42:00 Test Item Value Reference Range Comments B-TYPE NATRIURETIC PEPTIDE (BEAKER) (test 272 pg/mL 0-100 xzej=560) BASIC METABOLIC [id number] 15:32:00 Test Item Value Reference Range Comments SODIUM (BEAKER) (test 132 meq/L 136-145 zoga=649) POTASSIUM (BEAKER) (test 3.3 meq/L 3.5-5.1 byag=326) CHLORIDE (BEAKER) (test 90 meq/L 98-107 vimh=741) CO2 (BEAKER) (test 32 meq/L 22-29 iuns=607) BLOOD UREA NITROGEN 16 mg/dL 7-21 (BEAKER) (test mkjh=401) CREATININE (BEAKER) (test 0.91 mg/dL 0.57-1.25 iidx=203) GLUCOSE RANDOM (BEAKER) 122 mg/dL 70-105 (test rzdw=735) CALCIUM (BEAKER) (test 9.6 mg/dL 8.4-10.2 kudf=587) EGFR (BEAKER) (test 72 mL/min/1.73 sq m ESTIMATED GFR IS NOT hfwo=6696) ACCURATE CREATININE CLEARANCE IN PREDICTING GLOMERULAR FILTRATION RATE. ESTIMATED GFR IS NOT APPLICABLE FOR DIALYSIS PATIENTS. LACTIC ACID, VENOUS, WHOLE [id number] 08:32:00 Test Item Value Reference Range Comments LACTATE BLOOD VENOUS (2) (BEAKER) (test 0.7 mmol/L 0.5-2.2 wkjl=9073) Effective 12/03/2015: Units/Reference Range ChangeNew: 0.5-2.2 mmol/L Previous: 5 -20 mg/dLRAD, CHEST, 1 VIEW, NON [id number] 08:02:00Reason for exam:-> IABP/PA Cath Position MonitoringShould this be performed at the bedside?-> YesFINAL REPORT CLINICAL HISTORY: IABP/PA Cath Position Monitoring TECHNIQUE: 1 view of the chest. COMPARISON: 04/06/2018 IMPRESSION: The tip of the IABP catheter is no longer seen, and clinical correlation is requested. The [place]-Malorie catheter has been removed. Retrocardiac left mid and lower lung consolidation is unchanged. Patchy left upper and right lower lung airspace opacities have decreased. The cardiomediastinal silhouette is magnified by technique. Signed: Varun Brennan MDReport Verified Date/Time: 01/2018 08:02:20 Reading Location: [facility] Radiology Reading Room BASIC METABOLIC [id number] 06:43:00 Test Item Value Reference Range Comments SODIUM (BEAKER) (test 131 meq/L 136-145 sqkx=902) POTASSIUM (BEAKER) (test 3.9 meq/L 3.5-5.1 fupa=323) CHLORIDE (BEAKER) (test 94 meq/L 98-107 ljvy=014) CO2 (BEAKER) (test 29 meq/L 22-29 wgiu=507) BLOOD UREA NITROGEN 18 mg/dL 7-21 (BEAKER) (test wbyv=229) CREATININE (BEAKER) (test 0.85 mg/dL 0.57-1.25 ndsq=742) GLUCOSE RANDOM (BEAKER) 119 mg/dL 70-105 (test ibfo=147) CALCIUM (BEAKER) (test 9.1 mg/dL 8.4-10.2 vpcq=578) EGFR (BEAKER) (test 78 mL/min/1.73 sq m ESTIMATED GFR IS NOT rmit=9044) ACCURATE CREATININE CLEARANCE IN PREDICTING GLOMERULAR FILTRATION RATE. ESTIMATED GFR IS NOT APPLICABLE FOR DIALYSIS PATIENTS. CBC (HEMOGRAM ONLY)2018-04-07 06:20:00 Test Item Value Reference Range Comments WHITE BLOOD CELL COUNT (BEAKER) (test srdy=851) 9.9 K/ L 3.5-10.5 RED BLOOD CELL COUNT (BEAKER) (test tmzl=189) 3.84 M/ L 3.93-5.22 HEMOGLOBIN (BEAKER) (test jike=078) 8.3 GM/DL 11.2-15.7 HEMATOCRIT (BEAKER) (test rosm=174) 29.5 % 34.1-44.9 MEAN CORPUSCULAR VOLUME (BEAKER) (test qayn=564) 76.8 fL 79.4-94.8 MEAN CORPUSCULAR HEMOGLOBIN (BEAKER) (test 21.6 pg 25.6-32.2 hwth=078) MEAN CORPUSCULAR HEMOGLOBIN CONC (BEAKER) (test 28.1 GM/DL 32.2-35.5 bqjw=092) RED CELL DISTRIBUTION WIDTH (BEAKER) (test 17.8 % 11.7-14.4 kujf=741) PLATELET COUNT (BEAKER) (test tcoy=718) 410 K/CU MM 150-450 MEAN PLATELET VOLUME (BEAKER) (test iizu=324) 9.5 fL 9.4-12.3 NUCLEATED RED BLOOD CELLS (BEAKER) (test 0 /100 WBC 0-0 nwfb=865) [id number] 23:54:00 Test Item Value Reference Range Comments POTASSIUM (BEAKER) (test evlq=623) 4.3 meq/L 3.5-5.1 Check Serum Phosphorus level 4 hours after IV phosphorus replacement or 8 hours after PO replacementcompleted.8 hours after PO replacement [id number] 23:54:00 Test Item Value Reference Range Comments MAGNESIUM (BEAKER) (test gaoq=251) 2.1 mg/dL 1.6-2.6 Check Serum Phosphorus level 4 hours after IV phosphorus replacement or 8 hours after PO replacementcompleted.8 hours after PO replacement [id number] 23:54:00 Test Item Value Reference Range Comments PHOSPHORUS (BEAKER) (test xsfh=869) 4.4 mg/dL 2.3-4.7 Check Serum Phosphorus level 4 hours after IV phosphorus replacement or 8 hours after PO replacementcompleted.8 hours after PO replacement completedCALCIUM, [id number] 23:41:00 Test Item Value Reference Range Comments CALCIUM IONIZED (BEAKER) (test ayni=280) 1.11 mmol/L 1.12-1.27 PH, BLOOD (BEAKER) (test qlje=0771) 7.48 Check serum Ionized Calcium level after 4 hours after IV Calcium replacement.CBC W/PLT COUNT & AUTO [id number] 19:04:00 Test Item Value Reference Range Comments WHITE BLOOD CELL COUNT (BEAKER) (test kvzh=999) 10.3 K/ L 3.5-10.5 RED BLOOD CELL COUNT (BEAKER) (test peje=321) 4.04 M/ L 3.93-5.22 HEMOGLOBIN (BEAKER) (test eljt=204) 8.9 GM/DL 11.2-15.7 HEMATOCRIT (BEAKER) (test lvpo=407) 31.2 % 34.1-44.9 MEAN CORPUSCULAR VOLUME (BEAKER) (test oyek=180) 77.2 fL 79.4-94.8 MEAN CORPUSCULAR HEMOGLOBIN (BEAKER) (test 22.0 pg 25.6-32.2 otvr=863) MEAN CORPUSCULAR HEMOGLOBIN CONC (BEAKER) (test 28.5 GM/DL 32.2-35.5 vijp=099) RED CELL DISTRIBUTION WIDTH (BEAKER) (test 17.5 % 11.7-14.4 gjxm=564) PLATELET COUNT (BEAKER) (test adec=142) 394 K/CU MM 150-450 MEAN PLATELET VOLUME (BEAKER) (test iqww=242) 8.6 fL 9.4-12.3 NUCLEATED RED BLOOD CELLS (BEAKER) (test 0 /100 WBC 0-0 inuv=122) NEUTROPHILS RELATIVE PERCENT (BEAKER) (test 78 % wlnm=484) LYMPHOCYTES RELATIVE PERCENT (BEAKER) (test 10 % usme=068) MONOCYTES RELATIVE PERCENT (BEAKER) (test 8 % pkey=156) EOSINOPHILS RELATIVE PERCENT (BEAKER) (test 4 % ktth=007) BASOPHILS RELATIVE PERCENT (BEAKER) (test 0 % dbog=671) NEUTROPHILS ABSOLUTE COUNT (BEAKER) (test 7.98 K/ L 1.56-6.13 kyzr=614) LYMPHOCYTES ABSOLUTE COUNT (BEAKER) (test 1.02 K/ L 1.18-3.74 liti=976) MONOCYTES ABSOLUTE COUNT (BEAKER) (test 0.79 K/ L 0.24-0.36 mtwt=623) EOSINOPHILS ABSOLUTE COUNT (BEAKER) (test 0.40 K/ L 0.04-0.36 vniw=213) BASOPHILS ABSOLUTE COUNT (BEAKER) (test 0.04 K/ L 0.01-0.08 jxul=429) IMMATURE GRANULOCYTES-RELATIVE PERCENT (BEAKER) 1 % 0-1 (test gofr=6276) TROPONIN [id number] 18:53:00 Test Item Value Reference Range Comments TROPONIN I (BEAKER) (test xcyv=566) 0.06 ng/mL 0.00-0.03 Troponin I (TnI) levels must be interpreted [...] failure, acidosis, acute neurological disease, and persistent tachyarrhythmia.RAD, CHEST, 1 VIEW, NON [id number] 04:23:00Reason for exam:->IABP/PA Cath Position MonitoringShould this be performed at the bedside?->YesFINAL REPORT RAD, CHEST , 1 VIEW, NON DEPT INDICATION: IABP/PA Cath Position Monitoring COMPARISON: Prior day's exam FINDINGS: Portable frontal view of the chest. IMPRESSION: Support Lines: Stable positioning of intra-aortic balloon pump marker. [place]- Malorie catheter via right IJapproach is stable as well. Lungs and pleura: No consolidation is present. No pneumothorax.Heart andmediastinum: Stable contours. Additional findings: None. Signed: JR Monsalve Robert MDReport Verified Date/Time: 04/06/2018 04:23:25 Reading Location: [facility] B1 C013Y CT Body Reading Room [id number] 04:14:00 Test Item Value Reference Range Comments FERRITIN (BEAKER) (test dkwg=949) 74 ng/mL 5-275 IRON, TIBC, % SAT. (WITHOUT FERRITIN)2018-04-06 04:00:00 Test Item Value Reference Range Comments IRON (BEAKER) (test wsws=326) 24 ug/dL 40-160 TOTAL IRON BINDING CAPACITY (BEAKER) (test 335 ug/dL 250-450 hoqk=901) IRON % SATURATION (2) (BEAKER) (test vddu=2378) 7 % 20-55 [id number] 03:56:00 Test Item Value Reference Range Comments MAGNESIUM (BEAKER) (test nsbd=131) 2.0 mg/dL 1.6-2.6 BASIC METABOLIC [id number] 03:56:00 Test Item Value Reference Range Comments SODIUM (BEAKER) (test 138 meq/L 136-145 cpxe=214) POTASSIUM (BEAKER) (test 3.9 meq/L 3.5-5.1 oyem=620) CHLORIDE (BEAKER) (test 98 meq/L 98-107 uxxn=460) CO2 (BEAKER) (test 31 meq/L 22-29 vman=892) BLOOD UREA NITROGEN 19 mg/dL 7-21 (BEAKER) (test zrwc=328) CREATININE (BEAKER) (test 0.83 mg/dL 0.57-1.25 riiv=858) GLUCOSE RANDOM (BEAKER) 101 mg/dL 70-105 (test rxbe=682) CALCIUM (BEAKER) (test 9.2 mg/dL 8.4-10.2 mwmm=243) EGFR (BEAKER) (test 80 mL/min/1.73 sq m ESTIMATED GFR IS NOT fvwr=4603) ACCURATE CREATININE CLEARANCE IN PREDICTING GLOMERULAR FILTRATION RATE. ESTIMATED GFR IS NOT APPLICABLE FOR DIALYSIS PATIENTS. [id number] 03:52:00 Test Item Value Reference Range Comments PARTIAL THROMBOPLASTIN TIME (BEAKER) (test 68.8 seconds 22.5-36.0 ahcj=156) CBC (HEMOGRAM ONLY)2018-04-06 03:35:00 Test Item Value Reference Range Comments WHITE BLOOD CELL COUNT (BEAKER) (test rebd=950) 7.8 K/ L 3.5-10.5 RED BLOOD CELL COUNT (BEAKER) (test alch=109) 3.80 M/ L 3.93-5.22 HEMOGLOBIN (BEAKER) (test awdo=751) 8.3 GM/DL 11.2-15.7 HEMATOCRIT (BEAKER) (test ahps=812) 29.6 % 34.1-44.9 MEAN CORPUSCULAR VOLUME (BEAKER) (test kbam=959) 77.9 fL 79.4-94.8 MEAN CORPUSCULAR HEMOGLOBIN (BEAKER) (test 21.8 pg 25.6-32.2 pahi=470) MEAN CORPUSCULAR HEMOGLOBIN CONC (BEAKER) (test 28.0 GM/DL 32.2-35.5 ymbo=343) RED CELL DISTRIBUTION WIDTH (BEAKER) (test 17.7 % 11.7-14.4 kinu=617) PLATELET COUNT (BEAKER) (test kscr=757) 363 K/CU MM 150-450 MEAN PLATELET VOLUME (BEAKER) (test bfay=953) 9.2 fL 9.4-12.3 NUCLEATED RED BLOOD CELLS (BEAKER) (test 0 /100 WBC 0-0 bosm=011) CALCIUM, [id number] 03:31:00 Test Item Value Reference Range Comments CALCIUM IONIZED (BEAKER) (test kkxg=882) 1.15 mmol/L 1.12-1.27 PH, BLOOD (BEAKER) (test kuzm=8568) 7.43 [id number] 16:59:00 Test Item Value Reference Range Comments POTASSIUM (BEAKER) (test tsra=525) 4.1 meq/L 3.5-5.1 Check Serum Potassium level 2 hours after oral potassium replacement completed or 30 min after intravenous potassium replacement.[id number] 16:59:00 Test Item Value Reference Range Comments MAGNESIUM (BEAKER) (test dcvr=444) 2.2 mg/dL 1.6-2.6 Check Serum Potassium level 2 hours after oral potassium replacement completed or 30 min after intravenous potassium replacement.CALCIUM, [id number] 16: 45:00 Test Item Value Reference Range Comments CALCIUM IONIZED (BEAKER) (test talb=004) 1.16 mmol/L 1.12-1.27 PH, BLOOD (BEAKER) (test mbmb=2713) 7.44 Check serum Ionized Calcium level after 4 hours after IV Calcium replacement.CALCIUM, [id number] 05:47:00 Test Item Value Reference Range Comments CALCIUM IONIZED (BEAKER) (test ynys=447) 1.10 mmol/L 1.12-1.27 PH, BLOOD (BEAKER) (test iwog=8924) 7.44 Check serum Ionized Calcium level after 4 hours after IV Calcium replacement.RAD , CHEST, 1 VIEW, NON [id number] 05:01:00Reason for exam:->IABP/PA Cath Position MonitoringShould this be performed at the bedside?->YesFINAL REPORT CLINICAL INDICATION: Support lines. Comparison: 2017 The cardiomediastinal contours are stable. Central pulmonary vascular prominence and left-sided parenchymalopacities are unchanged. There is no pneumothorax. Support lines are stable. Signed: Jodie Handy MDReport Verified Date/Time: 04/05/2018 05:01:46 Reading Location: [address] Reading Room [id number] 04:47:00 Test Item Value Reference Range Comments MAGNESIUM (BEAKER) (test tmbc=125) 2.2 mg/dL 1.6-2.6 BASIC METABOLIC [id number] 04:47:00 Test Item Value Reference Range Comments SODIUM (BEAKER) (test 141 meq/L 136-145 odii=467) POTASSIUM (BEAKER) (test 3.8 meq/L 3.5-5.1 rrjc=009) CHLORIDE (BEAKER) (test 99 meq/L 98-107 xeib=878) CO2 (BEAKER) (test 30 meq/L 22-29 igyc=180) BLOOD UREA NITROGEN 13 mg/dL 7-21 (BEAKER) (test nvku=622) CREATININE (BEAKER) (test 0.85 mg/dL 0.57-1.25 krpc=082) GLUCOSE RANDOM (BEAKER) 113 mg/dL 70-105 (test njzt=087) CALCIUM (BEAKER) (test 9.3 mg/dL 8.4-10.2 uytc=467) EGFR (BEAKER) (test 78 mL/min/1.73 sq m ESTIMATED GFR IS NOT lvuo=3997) ACCURATE CREATININE CLEARANCE IN PREDICTING GLOMERULAR FILTRATION RATE. ESTIMATED GFR IS NOT APPLICABLE FOR DIALYSIS PATIENTS. [id number] 04:39:00 Test Item Value Reference Range Comments PARTIAL THROMBOPLASTIN TIME (BEAKER) (test 67.6 seconds 22.5-36.0 ucst=708) 4 hours after the start of continuous infusion and 4 hours after any rate changeCBC (HEMOGRAM ONLY)2018-04-05 04:32:00 Test Item Value Reference Range Comments WHITE BLOOD CELL COUNT (BEAKER) (test tdxp=607) 7.7 K/ L 3.5-10.5 RED BLOOD CELL COUNT (BEAKER) (test bbum=966) 4.22 M/ L 3.93-5.22 HEMOGLOBIN (BEAKER) (test nqrn=381) 9.3 GM/DL 11.2-15.7 HEMATOCRIT (BEAKER) (test nvig=970) 32.9 % 34.1-44.9 MEAN CORPUSCULAR VOLUME (BEAKER) (test ustq=464) 78.0 fL 79.4-94.8 MEAN CORPUSCULAR HEMOGLOBIN (BEAKER) (test 22.0 pg 25.6-32.2 xfdr=002) MEAN CORPUSCULAR HEMOGLOBIN CONC (BEAKER) (test 28.3 GM/DL 32.2-35.5 jvoc=430) RED CELL DISTRIBUTION WIDTH (BEAKER) (test 17.9 % 11.7-14.4 rybn=843) PLATELET COUNT (BEAKER) (test qcqv=345) 369 K/CU MM 150-450 MEAN PLATELET VOLUME (BEAKER) (test mbff=524) 9.3 fL 9.4-12.3 NUCLEATED RED BLOOD CELLS (BEAKER) (test 0 /100 WBC 0-0 pyct=569) RAD, CHEST, 1 VIEW, NON [id number] 21:30:00Reason for exam:->PA Position VerificationShould this be performed at the bedside?->YesFINAL REPORT RAD, CHEST, 1 VIEW, NON DEPT INDICATION: PA Position Verification COMPARISON: Prior day's exam FINDINGS: Portable frontal view of the chest. IMPRESSION: Support Lines: Interval retraction of the right IJ [place] catheter with tip overlying the right pulmonary artery. Intra-aortic balloon pump with superior marker at the level of the T5 vertebral body. Lungs and pleura: Unchanged airspace and pleural opacities. No pneumothorax.Heart and mediastinum: Stable contours. Additional findings: None. Signed: Tay Best MDReport Verified Date/Time: 04/04/2018 21:30:29 Reading Location: [facility] C0[facility] Transitional Reading Room CALCIUM, [id number] 06:29:00 Test Item Value Reference Range Comments CALCIUM IONIZED (BEAKER) (test avaz=650) 1.14 mmol/L 1.12-1.27 PH, BLOOD (BEAKER) (test ddyg=6806) 7.45 Check serum Ionized Calcium level after 4 hours after IV Calcium replacement.[id number] 06:01:00 Test Item Value Reference Range Comments PHOSPHORUS (BEAKER) (test smbz=439) 5.2 mg/dL 2.3-4.7 Check Serum Phosphorus level 4 hours after IV phosphorus replacement or 8 hours after PO replacementcompleted.[id number] 06:01:00 Test Item Value Reference Range Comments MAGNESIUM (BEAKER) (test atml=477) 2.2 mg/dL 1.6-2.6 Check Serum Phosphorus level 4 hours after IV phosphorus replacement or 8 hours after PO replacementcompleted.COMPREHENSIVE METABOLIC [id number] 06:01:00 Test Item Value Reference Range Comments TOTAL PROTEIN (BEAKER) 6.1 gm/dL 6.0-8.3 (test haiy=679) ALBUMIN (BEAKER) (test 3.0 g/dL 3.5-5.0 uufo=9794) ALKALINE PHOSPHATASE 129 U/L 40-150 (BEAKER) (test ewje=776) BILIRUBIN TOTAL (BEAKER) 0.7 mg/dL 0.2-1.2 (test qtfc=046) SODIUM (BEAKER) (test 135 meq/L 136-145 ftwq=890) POTASSIUM (BEAKER) (test 4.0 meq/L 3.5-5.1 uuir=178) CHLORIDE (BEAKER) (test 96 meq/L 98-107 ackh=095) CO2 (BEAKER) (test 30 meq/L 22-29 acqk=731) BLOOD UREA NITROGEN 11 mg/dL 7-21 (BEAKER) (test yslr=054) CREATININE (BEAKER) (test 0.80 mg/dL 0.57-1.25 abtp=010) GLUCOSE RANDOM (BEAKER) 122 mg/dL 70-105 (test mgic=190) CALCIUM (BEAKER) (test 9.2 mg/dL 8.4-10.2 muke=390) AST (SGOT) (BEAKER) (test 47 U/L 5-34 kfgr=406) ALT (SGPT) (BEAKER) (test 134 U/L 6-55 kcaq=276) EGFR (BEAKER) (test 83 mL/min/1.73 sq m ESTIMATED GFR IS NOT kbnz=7466) ACCURATE CREATININE CLEARANCE IN PREDICTING GLOMERULAR FILTRATION RATE. ESTIMATED GFR IS NOT APPLICABLE FOR DIALYSIS PATIENTS. Check Serum Phosphorus level 4 hours after IV phosphorus replacement or 8 hours after PO replacementcompleted.OXYGEN SATURATION, [id number] 05:35:00 Test Item Value Reference Range Comments O2 SATURATION (MEASURED) (BEAKER) (test xmpq=3524) 58.7 % [id number] 05:28:00 Test Item Value Reference Range Comments PARTIAL THROMBOPLASTIN TIME (BEAKER) (test 61.2 seconds 22.5-36.0 lrqk=495) CBC W/PLT COUNT & AUTO [id number] 05:21:00 Test Item Value Reference Range Comments WHITE BLOOD CELL COUNT (BEAKER) (test andn=752) 9.6 K/ L 3.5-10.5 RED BLOOD CELL COUNT (BEAKER) (test mbbm=132) 4.04 M/ L 3.93-5.22 HEMOGLOBIN (BEAKER) (test sbqk=837) 9.0 GM/DL 11.2-15.7 HEMATOCRIT (BEAKER) (test sdep=063) 31.0 % 34.1-44.9 MEAN CORPUSCULAR VOLUME (BEAKER) (test olph=956) 76.7 fL 79.4-94.8 MEAN CORPUSCULAR HEMOGLOBIN (BEAKER) (test 22.3 pg 25.6-32.2 scef=435) MEAN CORPUSCULAR HEMOGLOBIN CONC (BEAKER) (test 29.0 GM/DL 32.2-35.5 ldsz=324) RED CELL DISTRIBUTION WIDTH (BEAKER) (test 17.7 % 11.7-14.4 brcr=621) PLATELET COUNT (BEAKER) (test oxpq=639) 341 K/CU MM 150-450 MEAN PLATELET VOLUME (BEAKER) (test dyrm=256) 9.2 fL 9.4-12.3 NUCLEATED RED BLOOD CELLS (BEAKER) (test 0 /100 WBC 0-0 poxd=408) NEUTROPHILS RELATIVE PERCENT (BEAKER) (test 70 % hkos=921) LYMPHOCYTES RELATIVE PERCENT (BEAKER) (test 18 % jvce=974) MONOCYTES RELATIVE PERCENT (BEAKER) (test 9 % mmjw=081) EOSINOPHILS RELATIVE PERCENT (BEAKER) (test 2 % nfzh=254) BASOPHILS RELATIVE PERCENT (BEAKER) (test 0 % bpop=789) NEUTROPHILS ABSOLUTE COUNT (BEAKER) (test 6.73 K/ L 1.56-6.13 fhoj=477) LYMPHOCYTES ABSOLUTE COUNT (BEAKER) (test 1.72 K/ L 1.18-3.74 jgrf=561) MONOCYTES ABSOLUTE COUNT (BEAKER) (test 0.91 K/ L 0.24-0.36 sesp=015) EOSINOPHILS ABSOLUTE COUNT (BEAKER) (test 0.22 K/ L 0.04-0.36 rzfv=869) BASOPHILS ABSOLUTE COUNT (BEAKER) (test 0.03 K/ L 0.01-0.08 ovtf=389) IMMATURE GRANULOCYTES-RELATIVE PERCENT (BEAKER) 0 % 0-1 (test yfkk=2942) [id number] 02:17:00 Test Item Value Reference Range Comments POTASSIUM (BEAKER) (test bgle=227) 3.8 meq/L 3.5-5.1 Check Serum Phosphorus level 4 hours after IV phosphorus replacement or 8 hours after PO replacementcompleted.[id number] 01:57:00 Test Item Value Reference Range Comments PHOSPHORUS (BEAKER) (test smuw=504) 5.8 mg/dL 2.3-4.7 Check Serum Phosphorus level 4 hours after IV phosphorus replacement or 8 hours after PO replacementcompleted.[id number] 01:57:00 Test Item Value Reference Range Comments MAGNESIUM (BEAKER) (test glcu=414) 2.7 mg/dL 1.6-2.6 Check Serum Phosphorus level 4 hours after IV phosphorus replacement or 8 hours after PO replacementcompleted.CALCIUM, [id number] 01:47:00 Test Item Value Reference Range Comments CALCIUM IONIZED (BEAKER) (test xhbz=524) 1.02 mmol/L 1.12-1.27 PH, BLOOD (BEAKER) (test ajwe=1770) 7.47 Check serum Ionized Calcium level after 4 hours after IV Calcium replacement.[id number] 17:44:00 Test Item Value Reference Range Comments MAGNESIUM (BEAKER) (test 2.2 mg/dL 1.6-2.6 Specimen slightly hemolyzed tzpa=313) Check Serum Potassium level 2 hours after oral potassium replacement completed or 30 min after intravenous potassium replacement.[id number] 17:44:00 Test Item Value Reference Range Comments POTASSIUM (BEAKER) (test 4.2 meq/L 3.5-5.1 Specimen slightly hemolyzed zpvj=528) Check Serum Potassium level 2 hours after oral potassium replacement completed or 30 min after intravenous potassium replacement.[id number] 17:31:00 Test Item Value Reference Range Comments PARTIAL THROMBOPLASTIN TIME (BEAKER) (test 61.7 seconds 22.5-36.0 ivwf=396) 4 hours after the start of continuous infusion and 4 hours after any rate [id number] 12:09:00 Test Item Value Reference Range Comments PARTIAL THROMBOPLASTIN TIME (BEAKER) (test 63.1 seconds 22.5-36.0 npqm=053) 4 hours after the start of continuous infusion and 4 hours after any rate [id number] 12:03:00 Test Item Value Reference Range Comments POTASSIUM (BEAKER) (test twox=856) 4.0 meq/L 3.5-5.1 8 hours after PO replacement [id number] 12:03:00 Test Item Value Reference Range Comments MAGNESIUM (BEAKER) (test apsq=992) 2.3 mg/dL 1.6-2.6 URINALYSIS W/ REFLEX URINE [id number] 10:25:00 Test Item Value Reference Range Comments COLOR (BEAKER) (test kxxj=377) Light Yellow CLARITY (BEAKER) (test wvmc=732) Clear SPECIFIC GRAVITY UA (BEAKER) (test uako=292) 1.007 1.001-1.035 PH UA (BEAKER) (test htox=730) 6.5 5.0-8.0 PROTEIN UA (BEAKER) (test ygrh=845) Negative Negative GLUCOSE UA (BEAKER) (test aivn=211) Negative Negative KETONES UA (BEAKER) (test rmle=665) Negative Negative BILIRUBIN UA (BEAKER) (test jyvf=059) Negative Negative BLOOD UA (BEAKER) (test gngh=221) Negative Negative NITRITE UA (BEAKER) (test ccmb=015) Negative Negative LEUKOCYTE ESTERASE UA (BEAKER) (test uicf=042) Negative Negative UROBILINOGEN UA (BEAKER) (test jloe=669) 0.2 mg/dL 0.2-1.0 RBC UA (BEAKER) (test dggh=022) < /HPF WBC UA (BEAKER) (test qcqh=285) 0 /HPF SOURCE(BEAKER) (test xfio=5802) [id number] 04:17:00 Test Item Value Reference Range Comments MAGNESIUM (BEAKER) (test kcdj=216) 2.6 mg/dL 1.6-2.6 COMPREHENSIVE METABOLIC [id number] 04:17:00 Test Item Value Reference Range Comments TOTAL PROTEIN (BEAKER) 5.5 gm/dL 6.0-8.3 (test uugt=243) ALBUMIN (BEAKER) (test 2.9 g/dL 3.5-5.0 isli=6788) ALKALINE PHOSPHATASE 137 U/L 40-150 (BEAKER) (test ilqt=727) BILIRUBIN TOTAL (BEAKER) 0.6 mg/dL 0.2-1.2 (test mtkf=603) SODIUM (BEAKER) (test 134 meq/L 136-145 rfuw=523) POTASSIUM (BEAKER) (test 4.6 meq/L 3.5-5.1 wsnb=240) CHLORIDE (BEAKER) (test 102 meq/L 98-107 nods=185) CO2 (BEAKER) (test 26 meq/L 22-29 lsmj=127) BLOOD UREA NITROGEN 13 mg/dL 7-21 (BEAKER) (test zqhp=750) CREATININE (BEAKER) (test 0.80 mg/dL 0.57-1.25 iaxj=149) GLUCOSE RANDOM (BEAKER) 116 mg/dL 70-105 (test mjlh=209) CALCIUM (BEAKER) (test 8.4 mg/dL 8.4-10.2 kuny=566) AST (SGOT) (BEAKER) (test 89 U/L 5-34 xyju=037) ALT (SGPT) (BEAKER) (test 195 U/L 6-55 zvit=886) EGFR (BEAKER) (test 83 mL/min/1.73 sq m ESTIMATED GFR IS NOT neqv=9948) ACCURATE CREATININE CLEARANCE IN PREDICTING GLOMERULAR FILTRATION RATE. ESTIMATED GFR IS NOT APPLICABLE FOR DIALYSIS PATIENTS. CBC W/PLT COUNT & AUTO [id number] 03:53:00 Test Item Value Reference Range Comments WHITE BLOOD CELL COUNT (BEAKER) (test onwv=983) 17.0 K/ L 3.5-10.5 RED BLOOD CELL COUNT (BEAKER) (test yiji=951) 4.33 M/ L 3.93-5.22 HEMOGLOBIN (BEAKER) (test ktis=464) 9.6 GM/DL 11.2-15.7 HEMATOCRIT (BEAKER) (test nrgs=159) 34.1 % 34.1-44.9 MEAN CORPUSCULAR VOLUME (BEAKER) (test pqpe=359) 78.8 fL 79.4-94.8 MEAN CORPUSCULAR HEMOGLOBIN (BEAKER) (test 22.2 pg 25.6-32.2 ycfl=746) MEAN CORPUSCULAR HEMOGLOBIN CONC (BEAKER) (test 28.2 GM/DL 32.2-35.5 pkxx=197) RED CELL DISTRIBUTION WIDTH (BEAKER) (test 17.3 % 11.7-14.4 komh=777) PLATELET COUNT (BEAKER) (test jfpa=399) 458 K/CU MM 150-450 MEAN PLATELET VOLUME (BEAKER) (test cxgn=926) 9.4 fL 9.4-12.3 NUCLEATED RED BLOOD CELLS (BEAKER) (test 0 /100 WBC 0-0 zqnb=922) NEUTROPHILS RELATIVE PERCENT (BEAKER) (test 81 % vefs=140) LYMPHOCYTES RELATIVE PERCENT (BEAKER) (test 11 % gqhu=426) MONOCYTES RELATIVE PERCENT (BEAKER) (test 6 % wtod=441) EOSINOPHILS RELATIVE PERCENT (BEAKER) (test 1 % ldek=963) BASOPHILS RELATIVE PERCENT (BEAKER) (test 0 % eill=332) NEUTROPHILS ABSOLUTE COUNT (BEAKER) (test 13.68 K/ L 1.56-6.13 pvxk=363) LYMPHOCYTES ABSOLUTE COUNT (BEAKER) (test 1.92 K/ L 1.18-3.74 bffb=850) MONOCYTES ABSOLUTE COUNT (BEAKER) (test 1.05 K/ L 0.24-0.36 ddgd=059) EOSINOPHILS ABSOLUTE COUNT (BEAKER) (test 0.14 K/ L 0.04-0.36 czcg=009) BASOPHILS ABSOLUTE COUNT (BEAKER) (test 0.07 K/ L 0.01-0.08 ddwe=461) IMMATURE GRANULOCYTES-RELATIVE PERCENT (BEAKER) 1 % 0-1 (test opmn=6849) [id number] 03:51:00 Test Item Value Reference Range Comments PARTIAL THROMBOPLASTIN TIME (BEAKER) (test 52.1 seconds 22.5-36.0 lcwn=689) 4 hours after the start of continuous infusion and 4 hours after any rate changeRAD, CHEST, 1 VIEW, NON [id number] 00:54:00Reason for exam:->IABP, swan Should this be performed at the bedside?->YesFINAL REPORT RAD, CHEST, 1 VIEW, NON DEPT INDICATION: IABP, swan COMPARISON: Prior day's exam FINDINGS: Portable frontal view of the chest. IMPRESSION: Support Lines: Intervalrepositioning of the right IJ [place]-Malorie catheter with tip overlying the right lower lobar pulmonary artery. The intra-aortic balloon pump superior marker lies adjacent to the level of the evin. Lungsand pleura: Unchanged airspace and pleural opacities. No pneumothorax.Heart and mediastinum : Stable contours. Additional findings: None. Signed: [facility] Verified Date/Time: 04/03/2018 00:54:42 Reading Location: [facility] C0[facility] Transitional Reading Room OXYGEN SATURATION, [id number] 00:40: 00 Test Item Value Reference Range Comments O2 SATURATION (MEASURED) (BEAKER) (test wzai=9366) 66.3 % OXYGEN SATURATION, [id number] 00:40:00 Test Item Value Reference Range Comments O2 SATURATION (MEASURED) (BEAKER) (test uiop=6717) 63.6 % OXYGEN SATURATION, [id number] 00:03:00 Test Item Value Reference Range Comments O2 SATURATION (MEASURED) (BEAKER) (test lsac=9489) 96.6 % [id number] 21:26:00 Test Item Value Reference Range Comments POTASSIUM (BEAKER) (test cyoo=936) 4.5 meq/L 3.5-5.1 Check Serum Phosphorus level 4 hours after IV phosphorus replacement or 8 hours after PO replacementcompleted.Check Serum Potassium level 2 hours after oral potassium replacement completed or 30 min after intravenous potassium replacement.[id number] 21:26:00 Test Item Value Reference Range Comments MAGNESIUM (BEAKER) (test rxyy=241) 2.6 mg/dL 1.6-2.6 Check Serum Phosphorus level 4 hours after IV phosphorus replacement or 8 hours after PO replacementcompleted.Check Serum Potassium level 2 hours after oral potassium replacement completed or 30 min after intravenous potassium replacement.[id number] 21:26:00 Test Item Value Reference Range Comments PHOSPHORUS (BEAKER) (test ndwh=086) 4.4 mg/dL 2.3-4.7 Check Serum Phosphorus level 4 hours after IV phosphorus replacement or 8 hours after PO replacementcompleted.Check Serum Potassium level 2 hours after oral potassium replacement completed or 30 min after intravenous potassium replacement.CREATINE KINASE (CK)2018-04-02 21:26:00 Test Item Value Reference Range Comments CREATINE KINASE TOTAL (BEAKER) (test llzk=435) 90 U/L 29-200 Check Serum Phosphorus level 4 hours after IV phosphorus replacement or 8 hours after PO replacementcompleted.Check Serum Potassium level 2 hours after oral potassium replacement completed or 30 min after intravenous potassium replacement.[id number] 20:26:00 Test Item Value Reference Range Comments PARTIAL THROMBOPLASTIN TIME (BEAKER) (test 94.1 seconds 22.5-36.0 igon=485) Draw baseline aPTT prior to infusionHEMOGLOBIN AND [id number] 20:13:00 Test Item Value Reference Range Comments HEMOGLOBIN (BEAKER) (test vpmx=637) 10.3 GM/DL 11.2-15.7 HEMATOCRIT (BEAKER) (test ksoi=112) 35.2 % 34.1-44.9 [id number] 18:27:00 Test Item Value Reference Range Comments PARTIAL THROMBOPLASTIN TIME (BEAKER) (test 78.1 seconds 22.5-36.0 bqcz=051) [id number] 12:52:00 Test Item Value Reference Range Comments POTASSIUM (BEAKER) (test pwyb=618) 3.7 meq/L 3.5-5.1 [id number] 12:52:00 Test Item Value Reference Range Comments MAGNESIUM (BEAKER) (test tjxp=799) 1.6 mg/dL 1.6-2.6 [id number] 12:34:00 Test Item Value Reference Range Comments PARTIAL THROMBOPLASTIN TIME (BEAKER) (test 51.8 seconds 22.5-36.0 ozsk=593) HEMOGLOBIN [id number] 11:14:00 Test Item Value Reference Range Comments HEMOGLOBIN A1C (BEAKER) (test pkrw=332) 5.6 % 4.3-6.1 RAD, CHEST, 1 VIEW, NON [id number] 08:21:00Reason for exam:->IABP placement verificationShould this be performed at the bedside?->YesFINAL REPORT CHEST ONE VIEW HISTORY: Intra-aortic balloon pump placement COMPARISON: 04/01/2018 FINDINGS: Single portable AP examination of the chest was performed. Intra-aortic balloon pump is present, with the IABP marker at the level of the apex of the aortic arch. A right jugular pulmonary arterial catheter is present, with its tip in the descending right pulmonary artery. There are mild bilateral pulmonary opacities suggestive of pulmonary edema. A small left pleural effusion is present. The cardiac shadow is mildly enlarged. No pneumothorax. Signed: Mia Johnson MDReportVerified Date/Time: 09/2017 08:21:19 Reading Location: [address] Transitional Reading Room OXYGEN SATURATION, [id number] 07:05:00 Test Item Value Reference Range Comments O2 SATURATION (MEASURED) (BEAKER) (test tszn=2812) 60.8 % COMPREHENSIVE METABOLIC [id number] 04:40:00 Test Item Value Reference Range Comments TOTAL PROTEIN (BEAKER) 5.3 gm/dL 6.0-8.3 (test pist=231) ALBUMIN (BEAKER) (test 2.8 g/dL 3.5-5.0 sgjn=1238) ALKALINE PHOSPHATASE 147 U/L 40-150 (BEAKER) (test apsz=650) BILIRUBIN TOTAL (BEAKER) 0.4 mg/dL 0.2-1.2 (test ooqj=149) SODIUM (BEAKER) (test 137 meq/L 136-145 glus=461) POTASSIUM (BEAKER) (test 4.5 meq/L 3.5-5.1 sakj=072) CHLORIDE (BEAKER) (test 105 meq/L 98-107 gxzi=169) CO2 (BEAKER) (test 24 meq/L 22-29 frzo=416) BLOOD UREA NITROGEN 19 mg/dL 7-21 (BEAKER) (test knji=526) CREATININE (BEAKER) (test 0.85 mg/dL 0.57-1.25 svoj=608) GLUCOSE RANDOM (BEAKER) 100 mg/dL 70-105 (test dznj=846) CALCIUM (BEAKER) (test 8.2 mg/dL 8.4-10.2 bbee=260) AST (SGOT) (BEAKER) (test 185 U/L 5-34 tpbl=463) ALT (SGPT) (BEAKER) (test 285 U/L 6-55 pbgr=754) EGFR (BEAKER) (test 78 mL/min/1.73 sq m ESTIMATED GFR IS NOT tjws=1072) ACCURATE CREATININE CLEARANCE IN PREDICTING GLOMERULAR FILTRATION RATE. ESTIMATED GFR IS NOT APPLICABLE FOR DIALYSIS PATIENTS. [id number] 04:27:00 Test Item Value Reference Range Comments PARTIAL THROMBOPLASTIN TIME (BEAKER) (test 26.3 seconds 22.5-36.0 pgrk=141) 6 hours after starting heparin infusion and as indicated per sliding scaleCBC W/ PLT COUNT & AUTO [id number] 04:26:00 Test Item Value Reference Range Comments WHITE BLOOD CELL COUNT (BEAKER) (test zpka=073) 8.5 K/ L 3.5-10.5 RED BLOOD CELL COUNT (BEAKER) (test yymz=369) 4.35 M/ L 3.93-5.22 HEMOGLOBIN (BEAKER) (test zaqc=628) 9.6 GM/DL 11.2-15.7 HEMATOCRIT (BEAKER) (test rvvk=636) 33.4 % 34.1-44.9 MEAN CORPUSCULAR VOLUME (BEAKER) (test cmdy=393) 76.8 fL 79.4-94.8 MEAN CORPUSCULAR HEMOGLOBIN (BEAKER) (test 22.1 pg 25.6-32.2 nujy=794) MEAN CORPUSCULAR HEMOGLOBIN CONC (BEAKER) (test 28.7 GM/DL 32.2-35.5 neft=017) RED CELL DISTRIBUTION WIDTH (BEAKER) (test 17.1 % 11.7-14.4 vpww=264) PLATELET COUNT (BEAKER) (test kwip=540) 523 K/CU MM 150-450 MEAN PLATELET VOLUME (BEAKER) (test sbnn=180) 9.6 fL 9.4-12.3 NUCLEATED RED BLOOD CELLS (BEAKER) (test 0 /100 WBC 0-0 kgqu=762) NEUTROPHILS RELATIVE PERCENT (BEAKER) (test 59 % ucsy=214) LYMPHOCYTES RELATIVE PERCENT (BEAKER) (test 30 % jrtu=270) MONOCYTES RELATIVE PERCENT (BEAKER) (test 8 % wxgy=514) EOSINOPHILS RELATIVE PERCENT (BEAKER) (test 3 % gemy=524) BASOPHILS RELATIVE PERCENT (BEAKER) (test 1 % rwmo=083) NEUTROPHILS ABSOLUTE COUNT (BEAKER) (test 4.99 K/ L 1.56-6.13 owed=197) LYMPHOCYTES ABSOLUTE COUNT (BEAKER) (test 2.51 K/ L 1.18-3.74 vedq=117) MONOCYTES ABSOLUTE COUNT (BEAKER) (test 0.65 K/ L 0.24-0.36 qywq=591) EOSINOPHILS ABSOLUTE COUNT (BEAKER) (test 0.27 K/ L 0.04-0.36 yvwz=166) BASOPHILS ABSOLUTE COUNT (BEAKER) (test 0.04 K/ L 0.01-0.08 aedx=243) IMMATURE GRANULOCYTES-RELATIVE PERCENT (BEAKER) 1 % 0-1 (test dghq=7877) TROPONIN [id number] 00:08:00 Test Item Value Reference Range Comments TROPONIN I (BEAKER) (test vltf=497) 0.10 ng/mL 0.00-0.03 Troponin I (TnI) levels must be interpreted [...] failure, acidosis, acute neurological disease, and persistent tachyarrhythmia.BLOOD GAS, [id number] 00:06:00 Test Item Value Reference Range Comments PH VENOUS (BEAKER) (test xdsx=492) 7.43 7.32-7.42 PCO2 VENOUS (BEAKER) (test tvyc=690) 47 mmHg 41-51 PO2 VENOUS (BEAKER) (test gocj=290) 23 mmHg 25-40 O2 SATURATION VENOUS (BEAKER) (test vnwk=679) 40.9 % 40.0-70.0 HCO3 VENOUS (BEAKER) (test dslm=394) 30 mmol/L 21-29 BASE EXCESS VENOUS (BEAKER) (test jlfk=246) 5.1 mmol/L -2.0-3.0 PATIENT TEMPERATURE (BEAKER) (test cvfk=6633) 37.0 C FIO2 (BEAKER) (test deiv=2675) 100.0 % [id number] 00:02:00 Test Item Value Reference Range Comments MAGNESIUM (BEAKER) (test fcee=978) 1.8 mg/dL 1.6-2.6 COMPREHENSIVE METABOLIC [id number] 00:02:00 Test Item Value Reference Range Comments TOTAL PROTEIN (BEAKER) 5.2 gm/dL 6.0-8.3 (test qkdx=215) ALBUMIN (BEAKER) (test 2.8 g/dL 3.5-5.0 ypjj=2200) ALKALINE PHOSPHATASE 145 U/L 40-150 (BEAKER) (test fxyw=543) BILIRUBIN TOTAL (BEAKER) 0.4 mg/dL 0.2-1.2 (test nrnc=515) SODIUM (BEAKER) (test 135 meq/L 136-145 jbcg=209) POTASSIUM (BEAKER) (test 4.6 meq/L 3.5-5.1 maox=457) CHLORIDE (BEAKER) (test 102 meq/L 98-107 hxvp=912) CO2 (BEAKER) (test 26 meq/L 22-29 ccds=643) BLOOD UREA NITROGEN 20 mg/dL 7-21 (BEAKER) (test dxre=649) CREATININE (BEAKER) (test 0.87 mg/dL 0.57-1.25 lhqr=813) GLUCOSE RANDOM (BEAKER) 114 mg/dL 70-105 (test bbif=400) CALCIUM (BEAKER) (test 8.1 mg/dL 8.4-10.2 bwjy=000) AST (SGOT) (BEAKER) (test 193 U/L 5-34 rwhv=052) ALT (SGPT) (BEAKER) (test 278 U/L 6-55 ikmf=664) EGFR (BEAKER) (test 75 mL/min/1.73 sq m ESTIMATED GFR IS NOT sybh=9910) ACCURATE CREATININE CLEARANCE IN PREDICTING GLOMERULAR FILTRATION RATE. ESTIMATED GFR IS NOT APPLICABLE FOR DIALYSIS PATIENTS. LIPID [id number] 00:02:00 Test Item Value Reference Range Comments TRIGLYCERIDES (BEAKER) (test pfry=590) 129 mg/dL CHOLESTEROL (BEAKER) (test cfol=221) 124 mg/dL HDL CHOLESTEROL (BEAKER) (test kync=996) 19 mg/dL LDL CHOLESTEROL CALCULATED (BEAKER) (test 79 mg/dL mxdw=072) Triglyceride Reference Range: Low Risk <150 Borderline 150- 199 High Risk 200-499 Very High Risk >=500Cholesterol Reference Range: Low Risk <200 Borderline 200-239 High Risk > 240HDL Cholesterol Reference Range: Low Risk >=60 High Risk <40LDL Cholesterol Reference Range: Optimal <100 Near Optimal 100-129 Borderline 130-159 High 160-189 Very High >=190PROTHROMBIN [id number] 23:54:00 Test Item Value Reference Range Comments PROTIME (BEAKER) (test amlc=525) 13.9 seconds 11.7-14.7 INR (BEAKER) (test anmq=405) 1.1 <=5.9 RECOMMENDED COUMADIN/WARFARIN INR THERAPY RANGESSTANDARD DOSE: 2.0 - 3.0 Includes: PROPHYLAXIS forvenous thrombosis, systemic embolization; TREATMENT for venous thrombosis and/or pulmonary embolus.HIGH RISK: Target INR is 2.5-3.5 for patients with mechanical heart valves.CBC W/PLT COUNT & AUTO [id number] 23:43:00 Test Item Value Reference Range Comments WHITE BLOOD CELL COUNT (BEAKER) (test etxm=983) 9.4 K/ L 3.5-10.5 RED BLOOD CELL COUNT (BEAKER) (test okio=887) 4.40 M/ L 3.93-5.22 HEMOGLOBIN (BEAKER) (test wvmi=956) 9.8 GM/DL 11.2-15.7 HEMATOCRIT (BEAKER) (test kdbq=740) 34.1 % 34.1-44.9 MEAN CORPUSCULAR VOLUME (BEAKER) (test reth=798) 77.5 fL 79.4-94.8 MEAN CORPUSCULAR HEMOGLOBIN (BEAKER) (test 22.3 pg 25.6-32.2 raxh=631) MEAN CORPUSCULAR HEMOGLOBIN CONC (BEAKER) (test 28.7 GM/DL 32.2-35.5 xbuj=542) RED CELL DISTRIBUTION WIDTH (BEAKER) (test 17.1 % 11.7-14.4 ctsl=001) PLATELET COUNT (BEAKER) (test rpcq=427) 598 K/CU MM 150-450 MEAN PLATELET VOLUME (BEAKER) (test zfnk=220) 9.3 fL 9.4-12.3 NUCLEATED RED BLOOD CELLS (BEAKER) (test 0 /100 WBC 0-0 lavb=896) NEUTROPHILS RELATIVE PERCENT (BEAKER) (test 64 % lcgq=439) LYMPHOCYTES RELATIVE PERCENT (BEAKER) (test 24 % iwld=115) MONOCYTES RELATIVE PERCENT (BEAKER) (test 7 % qvwg=407) EOSINOPHILS RELATIVE PERCENT (BEAKER) (test 3 % wkbk=112) BASOPHILS RELATIVE PERCENT (BEAKER) (test 1 % quar=971) NEUTROPHILS ABSOLUTE COUNT (BEAKER) (test 6.02 K/ L 1.56-6.13 nkhc=797) LYMPHOCYTES ABSOLUTE COUNT (BEAKER) (test 2.30 K/ L 1.18-3.74 twcw=697) MONOCYTES ABSOLUTE COUNT (BEAKER) (test 0.70 K/ L 0.24-0.36 bedw=432) EOSINOPHILS ABSOLUTE COUNT (BEAKER) (test 0.31 K/ L 0.04-0.36 obxw=980) BASOPHILS ABSOLUTE COUNT (BEAKER) (test 0.06 K/ L 0.01-0.08 zien=106) IMMATURE GRANULOCYTES-RELATIVE PERCENT (BEAKER) 1 % 0-1 (test zbre=3946) RAD, CHEST, 1 VIEW, NON [id number] 23:40:00Reason for exam:->Central line placement verificationShould this be performed at the bedside?-> YesFINAL REPORT RAD, CHEST, 1 VIEW, NON DEPT INDICATION: Central line placement verification COMPARISON: Prior day's exam FINDINGS: Portable frontal view of the chest. IMPRESSION: Support Lines: Right IJ central venous catheter with tip overlying the right atrium. Lungs and pleura: Bilateral reticular interstitial opacities consistent with interstitial pulmonary edema however atypical infection could have a similar appearance in the proper clinical setting. Small bilateral pleural effusions. No pneumothorax .Heart and mediastinum: Heart is enlarged. Additional findings: None.Signed: Tay Best Verified Date/Time: 04/01/2018 23:40:00 Reading Location: [facility] C0[facility] Transitional Reading Room
--- NOTE | 2018-04-18 20:25 | EDPHYS ---
Physician Documentation [facility] Name: Rosetta Ramírez Age: 33 yrs Sex: Female : 1985 Arrival Date: 04/18/2018 Time: 19:35 Bed 2 Private MD: ED Physician Sukhwinder Alrdidge HPI: 04/18 20:05 This 33 yrs old Female presents to ER via Ambulatory with complaints of Chest william Pain, Shortness Of Breath. 20:05 The patient or guardian reports chest pain that is located primarily in the anterior william chest wall. The pain does not radiate. 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 - Social history:: Smoking status: Patient uses tobacco products, 2-3 cigarettes per day. - Ebola Screening: : Patient denies travel to an Ebola-affected area in the 21 days before illness onset. - Family history:: not pertinent. ROS: 20:06 Eyes: Negative for injury, pain, redness, and discharge, ENT: Negative for injury, william pain, and discharge, Neck: Negative for injury, pain, and swelling, Abdomen/GI: Negative for abdominal pain, nausea, vomiting, diarrhea, and constipation, Back: Negative for injury and pain, : Negative for injury, bleeding, discharge, and swelling, Skin: Negative for injury, rash, and discoloration, Neuro: Negative for headache, weakness, numbness, tingling, and seizure, Psych: Negative for depression, anxiety, suicide ideation, homicidal ideation, and hallucinations, Allergy/Immunology: Negative for hives, rash, and allergies, Endocrine: Negative for neck swelling, polydipsia, polyuria, polyphagia, and marked weight changes, Hematologic/Lymphatic: Negative for swollen nodes, abnormal bleeding, and unusual bruising. 20:06 Constitutional: Positive for body aches, chills, fever. 20:06 Cardiovascular: Positive for chest pain, palpitations. 20:06 Respiratory: Positive for cough, shortness of breath. 20:06 MS/extremity: Positive for pain, of the right femoral area. Exam: 20:06 Head/Face: Normocephalic, atraumatic. Eyes: Pupils equal round and reactive to light, william extra-ocular motions intact. Lids and lashes normal. Conjunctiva and sclera are non-icteric and not injected. Cornea within normal limits. Periorbital areas with no swelling, redness, or edema. ENT: Nares patent. No nasal discharge, no septal abnormalities noted. Tympanic membranes are normal and external auditory canals are clear. Oropharynx with no redness, swelling, or masses, exudates, or evidence of obstruction, uvula midline. Mucous membranes moist. Neck: Trachea midline, no thyromegaly or masses palpated, and no cervical lymphadenopathy. Supple, full range of motion without nuchal rigidity, or vertebral point tenderness. No Meningismus. Chest/axilla: Normal chest wall appearance and motion. Nontender with no deformity. No lesions are appreciated. Respiratory: Lungs have equal breath sounds bilaterally, clear to auscultation and percussion. No rales, rhonchi or wheezes noted. No increased work of breathing, no retractions or nasal flaring. Abdomen/GI: Soft, non-tender, with normal bowel sounds. No distension or tympany. No guarding or rebound. No evidence of tenderness throughout. Back: No spinal tenderness. No costovertebral tenderness. Full range of motion. Skin: Warm, dry with normal turgor. Normal color with no rashes, no lesions, and no evidence of cellulitis. Neuro: Awake and alert, GCS 15, oriented to person, place, time, and situation. Cranial nerves II-XII grossly intact. Motor strength 5/5 in all extremities. Sensory grossly intact. Cerebellar exam normal. Normal gait. Psych: Awake, alert, with orientation to person, place and time. Behavior, mood, and affect are within normal limits. 20:06 Constitutional: The patient appears febrile. 20:06 Cardiovascular: Rate: tachycardic, Rhythm: regular, Pulses: Pulses are 4+ in bilateral radial, brachial, femoral, popliteal, posterior tibial and and dorsalis pedis arteries.. Heart sounds: normal, Edema: is not appreciated, JVD: is not appreciated. 20:06 Respiratory: the patient does not display signs of respiratory distress, Respirations: normal, Breath sounds: rhonchi, that are mild, are scattered. Vital Signs: 19:42 BP 119 / 75; Pulse 115; Resp 20; Temp 100.6(O); Pulse Ox 100% on R/A; Weight 65.77 kg aj1 (R); Height 5 ft. 6 in. (167.64 cm) (R); Pain 9/10; 20:00 BP 108 / 75; Pulse 102; Resp 25; Pulse Ox 99% ; bp 21:00 BP 109 / 77; Pulse 84; Resp 25; Pulse Ox 97% ; bp 21:15 BP 112 / 80; Pulse 91; Resp 17; Temp 101.6; Pulse Ox 100% ; bp 22:00 BP 107 / 70; Pulse 105; Resp 21; Pulse Ox 100% ; bp 22:30 BP 105 / 75; Pulse 88; Resp 27; Pulse Ox 100% ; bp 23:30 BP 94 / 68; Pulse 80; Resp 9; Temp 98.7; Pulse Ox 100% ; bp 04/19 00:00 BP 106 / 61; Pulse 79; Resp 9; Pulse Ox 100% ; bp 00:31 BP 110 / 65; Pulse 78; Resp 16; Pulse Ox 100% ; bp 04/18 19:42 Body Mass Index 23.40 (65.77 kg, 167.64 cm) aj1 MDM: 04/18 19:56 Patient medically screened. [facility] 20:09 Data reviewed: vital signs, nurses notes, lab test result(s), EKG, radiologic studies, william plain films. 04/18 20:04 Order name: Basic Metabolic Panel; Complete Time: 21:31 [facility] 04/18 20:04 Order name: CBC with Diff; Complete Time: 21:31 [facility] 04/18 20:04 Order name: LFT's; Complete Time: 21:31 [facility] 04/18 20:04 Order name: Magnesium; Complete Time: 21:31 [facility] 04/18 20:04 Order name: NT PRO-BNP; Complete Time: 21:31 [facility] 04/18 20:04 Order name: PT-INR; Complete Time: 21:06 [facility] 04/18 20:04 Order name: Troponin (emerg Dept Use Only); Complete Time: 21:31 [facility] 04/18 20:04 Order name: Blood Culture Adult (2) [facility] 04/18 20:04 Order name: Lactate; Complete Time: 21:17 [facility] 04/18 20:04 Order name: Procalcitonin; Complete Time: 21:48 [facility] 04/18 20:04 Order name: Digoxin; Complete Time: 21:31 [facility] 04/18 20:09 Order name: Strep; Complete Time: 21:31 [facility] 04/18 20:09 Order name: Influenza Screen (a \\T\\ B); Complete Time: 21:31 [facility] 04/18 21:22 Order name: CBC Smear Scan; Complete Time: 21:31 [facility] 04/18 20:04 Order name: XRAY Chest (1 view); Complete Time: 22:13 [facility] 04/18 21:29 Order name: Throat Culture [facility] 04/18 22:13 Order name: INCENTIVE SPIROMETRY [facility] 04/18 22:13 Order name: Urine Microscopic Only 04/18 22:38 Order name: Urine Dipstick--Ancillary (enter results); Complete Time: 22:56 [facility] 04/18 20:04 Order name: EKG; Complete Time: 20:04 [facility] 04/18 20:04 Order name: Cardiac monitoring; Complete Time: 20:24 [facility] 04/18 20:04 Order name: EKG - Nurse/Tech; Complete Time: 20:17 [facility] 04/18 20:04 Order name: IV Saline Lock; Complete Time: 20:24 [facility] 04/18 20:04 Order name: Labs collected and sent; Complete Time: 20:24 [facility] 04/18 20:04 Order name: O2 Per Protocol; Complete Time: 20:24 [facility] 04/18 20:04 Order name: O2 Sat Monitoring; Complete Time: 20:24 [facility] 04/18 22:13 Order name: Sarkar; Complete Time: 22:15 [facility] 04/18 22:13 Order name: Urine Dipstick-Ancillary (obtain specimen); Complete Time: 22:30 bp Administered Medications: 20:25 Drug: Rocephin - (cefTRIAXone) 1 grams Route: IVPB; Infused Over: 30 mins; Site: left bp antecubital; 21:15 Follow up: IV Status: Completed infusion; IV Intake: 100ml bp 20:25 Drug: Tylenol 650 mg Route: PO; bp 21:13 Follow up: Response: No adverse reaction bp 20:25 Drug: Aspirin 81 mg Route: PO; bp 21:14 Follow up: Response: No adverse reaction bp 20:25 Drug: Lovenox 60 mg Route: Sub-Q; Site: right lower abdomen; bp 21:14 Follow up: Response: No adverse reaction bp 20:25 Drug: Pepcid 20 mg Route: IVP; Site: left antecubital; bp 21:14 Follow up: Response: No adverse reaction bp 20:38 Not Given (Duplicate Order): NS 0.9% 1000 ml IV at 75 ml/hr continuous william 20:45 Drug: Lasix 20 mg Route: IVP; Site: left antecubital; bp 21:15 Follow up: Response: No adverse reaction bp 21:50 Drug: Digoxin 0.25 mg Route: IVP; Site: left antecubital; bp 22:43 Follow up: Response: No adverse reaction bp 21:50 Drug: Potassium Effervescent Tablet 25 mEq Route: PO; bp 22:44 Follow up: Response: No adverse reaction bp 21:50 Drug: Zithromax 500 mg Route: IVPB; Infused Over: 1 hrs; Site: left antecubital; bp 22:43 Follow up: IV Status: Completed infusion; IV Intake: 250ml bp 22:43 Drug: vancoMYCIN 1 grams Route: IVPB; Infused Over: 2 hrs; Site: left antecubital; bp 23:04 Drug: fentaNYL (PF) 25 mcg Route: IVP; Site: left antecubital; bp 23:33 Follow up: Response: Pain is decreased bp 23:04 Drug: Zofran 4 mg Route: IVP; Site: left antecubital; bp 23:34 Follow up: Response: Nausea is decreased bp Disposition: 04/18/18 20:[address] [facility]. Diagnosis are Chest pain, unspecified, Dyspnea, Tachycardia, unspecified, Unspecified combined systolic (congestive) and diastolic (congestive) heart failure, Cardiomyopathy, Anemia, unspecified, Fever, unspecified. - Reason for transfer: Higher level of care. - Accepting physician is [facility]. - Condition is Fair. - Problem is new. - Symptoms have improved. Signatures: Dispatcher [employer] Clari Segura, RN RN aj1 Sukhwinder Aldridge MD MD cha Peltier, Brian, RN RN bp Corrections: (The following items were deleted from the chart) 21:16 20:24 04/18/2018 20:[address] [facility]. Diagnosis is william Chest pain, unspecified; Dyspnea; Tachycardia, unspecified; Unspecified combined systolic (congestive) and diastolic (congestive) heart failure; Cardiomyopathy. Reason for transfer: Higher level of care. Accepting physician is [facility]. Condition is Fair. Problem is new. Symptoms have improved. william 21:34 21:16 04/18/2018 20:[address] [facility]. Diagnosis is william Chest pain, unspecified; Dyspnea; Tachycardia, unspecified; Unspecified combined systolic (congestive) and diastolic (congestive) heart failure; Cardiomyopathy; Anemia, unspecified. Reason for transfer: Higher level of care. Accepting physician is [facility]. Condition is Fair. Problem is new. Symptoms have improved. [facility] 04/19 00:39 04/18 21:34 04/18/2018 20:[address] [facility]. bp Diagnosis is Chest pain, unspecified; Dyspnea; Tachycardia, unspecified; Unspecified combined systolic (congestive) and diastolic (congestive) heart failure; Cardiomyopathy; Anemia, unspecified; Fever, unspecified. Reason for transfer: Higher level of care. Accepting physician is [facility]. Condition is Fair. Problem is new. Symptoms have improved. william
--- NOTE | 2018-04-18 20:25 | ER ---
Nurse's Notes [facility] Name: Rosetta Ramírez Age: 33 yrs Sex: Female : 1985 Arrival Date: 04/18/2018 Time: 19:35 Bed 2 Private MD: Diagnosis: Chest pain, unspecified;Dyspnea;Tachycardia, unspecified;Unspecified combined systolic (congestive) and diastolic (congestive) heart failure;Cardiomyopathy;Anemia, unspecified;Fever, unspecified Presentation: 04/18 19:35 Presenting complaint: Patient states: She was discharged from [facility] for CHF and aj1 cardiomyopathy April 14. She had a balloon pump placement on April 09 while she was admitted and now the right groin where did the procedure is hot and "feels like it is full of marbles" Patient reports a history of DVT. Patient also reports SOB that is worse when laying down, swelling in both her ankles and chest pain. Also reports she has been running a low grade fever for the past 2 days. Transition of care: patient was not received from another setting of care. Onset of symptoms was April 16, 2018. Risk Assessment: Do you want to hurt yourself or someone else? Patient reports no desire to harm self or others. Initial Sepsis Screen: Does the patient meet any 2 criteria? HR > 90 bpm. Does the patient have a suspected source of infection? Yes: Other: fever, chest pain. Care prior to arrival: None. 19:35 Method Of Arrival: Ambulatory aj1 19:35 Acuity: CRYSTAL 2 aj1 Triage Assessment: 19:42 General: Appears in no apparent distress. uncomfortable, Behavior is calm, cooperative, aj1 appropriate for age. Pain: Complains of pain in mid-sternal area Pain radiates to neck Pain currently is 8 out of 10 on a pain scale. Cardiovascular: Reports chest pain, shortness of breath, Patient's skin is warm and dry. Respiratory: Reports shortness of breath Airway is patent Respiratory effort is even, unlabored, Respiratory pattern is regular, symmetrical. 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 - Social history:: Smoking status: Patient uses tobacco products, 2-3 cigarettes per day. - Ebola Screening: : Patient denies travel to an Ebola-affected area in the 21 days before illness onset. - Family history:: not pertinent. Screenin:21 Abuse screen: Denies threats or abuse. Denies injuries from another. Nutritional bp screening: No deficits noted. Tuberculosis screening: No symptoms or risk factors identified. Fall Risk None identified. Assessment: 20:00 General: Appears in no apparent distress. uncomfortable, slender, Behavior is calm, bp cooperative, appropriate for age. Pain: Pain began suddenly. Neuro: Level of Consciousness is awake, alert, obeys commands, Oriented to person, place, time, situation, Appropriate for age. Cardiovascular: Rhythm is sinus tachycardia. Respiratory: Airway is patent Respiratory effort is even, unlabored, Respiratory pattern is regular, symmetrical. GI: No signs and/or symptoms were reported involving the gastrointestinal system. : No signs and/or symptoms were reported regarding the genitourinary system. EENT: No deficits noted. Derm: Skin temperature is hot Abscess located on right femoral area is half dollar sized. Musculoskeletal: Circulation, motion, and sensation intact. Range of motion: intact in all extremities. 22:00 Reassessment: ADMIT IN PROCESS, ST NOTED ON MONITOR, PADS IN PLACE. bp 23:00 Reassessment: TRANSFER APPROVED TO [facility], ADMIN APPROVAL PENDING. bp 04/19 00:13 Reassessment: REPORT TO [facility] FOR TRANSFER, TRANSPORT EN ROUTE. bp 00:30 Reassessment: EMS AT B/S FOR TRANSPORT. bp Vital Signs: 04/18 19:42 BP 119 / 75; Pulse 115; Resp 20; Temp 100.6(O); Pulse Ox 100% on R/A; Weight 65.77 kg aj1 (R); Height 5 ft. 6 in. (167.64 cm) (R); Pain 9/10; 20:00 BP 108 / 75; Pulse 102; Resp 25; Pulse Ox 99% ; bp 21:00 BP 109 / 77; Pulse 84; Resp 25; Pulse Ox 97% ; bp 21:15 BP 112 / 80; Pulse 91; Resp 17; Temp 101.6; Pulse Ox 100% ; bp 22:00 BP 107 / 70; Pulse 105; Resp 21; Pulse Ox 100% ; bp 22:30 BP 105 / 75; Pulse 88; Resp 27; Pulse Ox 100% ; bp 23:30 BP 94 / 68; Pulse 80; Resp 9; Temp 98.7; Pulse Ox 100% ; bp 04/19 00:00 BP 106 / 61; Pulse 79; Resp 9; Pulse Ox 100% ; bp 00:31 BP 110 / 65; Pulse 78; Resp 16; Pulse Ox 100% ; bp 04/18 19:42 Body Mass Index 23.40 (65.77 kg, 167.64 cm) aj1 ED Course: 04/18 19:35 Patient arrived in ED. aj1 19:41 Triage completed. aj1 19:42 Arm band placed on Patient placed in an exam room. aj1 19:50 Robb Miranda, ALINE is Primary Nurse. bp 19:56 Sukhwinder Aldridge MD is Attending Physician. william 20:10 Inserted saline lock: 18 gauge in left antecubital area, using aseptic technique. Blood bp collected. Patient maintains SpO2 saturation greater than 95% on room air. 20:22 Patient has correct armband on for positive identification. Placed in gown. Bed in low bp position. Call light in reach. Side rails up X2. patient monitor on. Pulse ox on. NIBP on. 20:23 XRAY Chest (1 view) In Process Unspecified. EDMS 20:23 Strep Sent. bp 20:23 Influenza Screen (a \\T\\ B) Sent. bp 21:03 Notified ED physician of a critical lab result(s). HGB 6.4, HCT 20.2 Dr Aldridge bb notified. 22:35 Sarkar cath inserted, using sterile technique, 18 Fr., by alkylation operator, balloon inflated, to bp gravity drainage, urine specimen collected. returned clear yellow urine. Patient tolerated well. Patient transferred, IV remains in place. 04/19 00:03 Report given to ADITHYA MIRELES, CCU 2, BED 11, [facility], . bp 00:31 No provider procedures requiring assistance completed. bp Administered Medications: 04/18 20:25 Drug: Rocephin - (cefTRIAXone) 1 grams Route: IVPB; Infused Over: 30 mins; Site: left bp antecubital; 21:15 Follow up: IV Status: Completed infusion; IV Intake: 100ml bp 20:25 Drug: Tylenol 650 mg Route: PO; bp 21:13 Follow up: Response: No adverse reaction bp 20:25 Drug: Aspirin 81 mg Route: PO; bp 21:14 Follow up: Response: No adverse reaction bp 20:25 Drug: Lovenox 60 mg Route: Sub-Q; Site: right lower abdomen; bp 21:14 Follow up: Response: No adverse reaction bp 20:25 Drug: Pepcid 20 mg Route: IVP; Site: left antecubital; bp 21:14 Follow up: Response: No adverse reaction bp 20:38 Not Given (Duplicate Order): NS 0.9% 1000 ml IV at 75 ml/hr continuous william 20:45 Drug: Lasix 20 mg Route: IVP; Site: left antecubital; bp 21:15 Follow up: Response: No adverse reaction bp 21:50 Drug: Digoxin 0.25 mg Route: IVP; Site: left antecubital; bp 22:43 Follow up: Response: No adverse reaction bp 21:50 Drug: Potassium Effervescent Tablet 25 mEq Route: PO; bp 22:44 Follow up: Response: No adverse reaction bp 21:50 Drug: Zithromax 500 mg Route: IVPB; Infused Over: 1 hrs; Site: left antecubital; bp 22:43 Follow up: IV Status: Completed infusion; IV Intake: 250ml bp 22:43 Drug: vancoMYCIN 1 grams Route: IVPB; Infused Over: 2 hrs; Site: left antecubital; bp 23:04 Drug: fentaNYL (PF) 25 mcg Route: IVP; Site: left antecubital; bp 23:33 Follow up: Response: Pain is decreased bp 23:04 Drug: Zofran 4 mg Route: IVP; Site: left antecubital; bp 23:34 Follow up: Response: Nausea is decreased bp Intake: 21:15 IV: 100ml; Total: 100ml. bp 22:43 IV: 250ml; Total: 350ml. bp Output: 04/19 00:31 Urine: 1025ml (Sarkar); Total: 1025ml. bp Outcome: 04/18 20:24 ER care complete, transfer ordered by MD. thomas 04/19 00:31 Transferred by ground EMS to [facility]. bp Condition: stable Instructed on the need for transfer. 00:39 Patient left the ED. bp Signatures: Dispatcher [employer] EDClari Charles, ALINE RN aj1 Sukhwinder Aldridge MD MD cha Ballard, Brenda, RN RN bb Peltier, Brian, RN RN bp Corrections: (The following items were deleted from the chart) 04/18 23:35 23:30 BP 94 / 68; Pulse 80bpm; Resp 9bpm; Pulse Ox 100%; bp bp
[2018-04-18] MEDS ORDERED: CEFTRIAXONE 1000 MG/VIAL ONE (20:51)
[2018-04-18] MEDS ORDERED: FAMOTIDINE 20 MG/2 ML VIAL IV ONE (20:51)
[2018-04-18] MEDS ORDERED: NA CHLORIDE 0.9% 100 ML IV ONE (20:51)
[2018-04-18] MEDS ORDERED: ACETAMINOPHEN 325 MG TABLET ONE (20:51)
[2018-04-18] MEDS ORDERED: ASPIRIN EC 81 MG TAB PO ONE (20:51)
[2018-04-18] MEDS ORDERED: NA CHLORIDE 0.9% 1,000 ML ONE (20:52)
[2018-04-18] MEDS ORDERED: ENOXAPARIN 60 MG/0.6 ML SQ ONE (20:52)
[2018-04-18 20:59] LABS: Absolute Monocytes 0.7 K/uL (0.1-1.3); Absolute Neutrophil 5.6 K/uL (1.8-8.0); Basophils % 0.7 % (0-1.3); Eosinophils % 2.5 % (0-4.4); Hematocrit 20.2 % (36.0-45.0); Lymphocytes % 13.7 % (15.3-44.8); MCH 23.8 pg (27.0-35.0); MCV 75.3 fL (80-100); MPV 6.8 fL (7.6-11.3); Monocytes % 9.4 % (3.3-12.3); RBC Red Blood Cell Count 2.68 M/uL (3.86-4.86)
[2018-04-18 21:02] LABS: Protime INR 1.28
[2018-04-18] MEDS ORDERED: FUROSEMIDE 20 MG/ 2ML VIAL ONE (21:14)
[2018-04-18 21:22] LABS: Anisocytosis 2+; Blood Morphology Comment NOTED (NOT SEEN); Hypochromasia 1+; Ovalocytes 1+; Platelet Estimate INCR; Urine White Blood Cell Casts OK
[2018-04-18 21:28] LABS: Albumin 2.6 g/dL (3.4-5.0); Bilirubin Direct 0.1 mg/dL (0-0.2); Bilirubin Total 0.4 mg/dL (0.2-1.0); Digoxin Level 0.6 ng/mL (0.80-2.00); Magnesium 2.2 mg/dL (1.8-2.4); Potassium 3.4 mmol/L (3.5-5.1); Troponin (Emerg Dept Use Only) 0.04 ng/mL (0.0-0.045)
--- NOTE | 2018-04-18 21:51 | RAD REPORT ---
EXAM DESCRIPTION: RAD - Chest Single View - 04/18/2018 8:25 pm CLINICAL HISTORY: CHF, shortness of breath, cardiomyopathy COMPARISON: March 31 TECHNIQUE: AP portable chest image was obtained 2012 hours . FINDINGS: Right lung field is clear. Cardiomegaly is present without vascular engorgement. Left base is limited. There is hazy opacification. Left base atelectasis or infiltrate cannot be excluded. Tra juan manuel is midline. Resuscitation paddle overlies the chest. Trachea is midline. No pneumothorax or larg e pleural effusion. Small left pleural effusion not excluded. No gross bony abnormality seen. No acut e aortic findings suspected. IMPRESSION: Cardiomegaly without vascular engorgement. Left base assessment is limited. Infiltrates/atelectasis and pleural effusion not excluded.
[2018-04-18] MEDS ORDERED: POTASSIUM 25 MEQ EFFERV TAB ONE (22:05)
[2018-04-18] MEDS ORDERED: DIGOXIN 0.25 MG/ML AMP ONE (22:05)
[2018-04-18] MEDS ORDERED: AZITHROMYCIN 500 MG/250 ML BAG ONE (22:06)
[2018-04-18] MEDS ORDERED: VANCOMYCIN 1 GM/250 ML BAG ONE (22:06)
[2018-04-18 22:46] LABS: Urine Blood NEGATIVE (NEG); Urine Glucose NEGATIVE (NEG); Urine Protein NEGATIVE (NEG); Urine Specific Gravity 1.015 (1.005-1.030)
[2018-04-18] MEDS ORDERED: FENTANYL CITR 100 MCG/2 ML ONE (23:05)
[2018-04-18] MEDS ORDERED: ONDANSETRON 4 MG/2 ML VIAL ONE (23:06)
[2018-04-18 23:17] LABS: Urine Bacteria <20 /HPF (<20); Urine Culture Reflex Order NOT NEEDED; Urine RBC NONE SEEN /HPF (NONE SEEN)
[2018-04-19 00:56] VITALS: O2SAT 100
[2018-04-19 00:59] VITALS: TEMP 98.7
[2018-04-19 01:01] VITALS: BP 110/65
--- NOTE | 2018-04-19 11:49 | EKG ---
Test Date: 2018-04-18 Test Time: 22:50:30 [place]: RAVI MEASUREMENT RESULTS: Intervals: Rate: 88 DC: 134 QRSD: 88 QT: 338 QTc: 408 [place]: P: 85 DC: 134 QRS: 112 T: 240 INTERPRETIVE STATEMENTS: Sinus rhythm with occasional premature ventricular complexes Left posterior fascicular block Cannot rule out Anterior infarct, age undetermined ST & T wave abnormality, consider lateral ischemia Abnormal ECG Compared to ECG 04/18/2018 19:57:09 Ventricular premature complex(es) now present Left posterior fascicular block now present Myocardial infarct finding now present Sinus tachycardia no longer present ST (T wave) deviation still present Possible ischemia still present Electronically Signed On 04-19-18 11:46:30 CDT by Petey Le
--- NOTE | 2018-04-19 11:49 | EKG ---
Test Date: 2018-04-18 Test Time: 22:53:46 Publicity Expert: RAVI MEASUREMENT RESULTS: Intervals: Rate: 87 PA: 134 QRSD: 86 QT: 364 QTc: 438 [place]: P: 83 PA: 134 QRS: 112 T: 221 INTERPRETIVE STATEMENTS: Sinus rhythm with occasional premature ventricular complexes Left posterior fascicular block Cannot rule out Anterior infarct, age undetermined ST & T wave abnormality, consider inferolateral ischemia Abnormal ECG Compared to ECG 04/18/2018 22:50:30 No significant changes Electronically Signed On 04-19-18 11:46:29 CDT by Petey Le
--- NOTE | 2018-04-19 11:49 | EKG ---
Test Date: 2018-04-18 Test Time: 19:57:09 Plumbing Hardware Assembler: JEF MEASUREMENT RESULTS: Intervals: Rate: 111 NH: 112 QRSD: 82 QT: 302 QTc: 410 [place]: P: 73 NH: 112 QRS: 62 T: 250 INTERPRETIVE STATEMENTS: Sinus tachycardia ST & T wave abnormality, consider inferior ischemia Abnormal ECG Compared to ECG 03/30/2018 14:05:07 ST (T wave) deviation now present Possible ischemia now present Right-axis deviation no longer present Myocardial infarct finding no longer present Electronically Signed On 04-19-18 11:46:34 CDT by Petey Le
== END 2018-04-19 00:39 | disposition short-term general hospital (02) ==
LOC: ER 19:32
DX: I50.40 Unspecified combined systolic (congestive) and diastolic (congestive) heart failure (principal); I42.9 Cardiomyopathy, unspecified; R06.00 Dyspnea, unspecified; R00.0 Tachycardia, unspecified; D64.9 Anemia, unspecified; R50.9 Fever, unspecified; F17.210 Nicotine dependence, cigarettes, uncomplicated
CPT/HCPCS: 36415; 51702; 71045; 80048; 80076; 80162; 81003; 81015; 83605; 83735; 83880; 84145; 84484; 85025; 85610; 87040; 87070; 87081; 87804; 93005; 96365; 96367; 96372; 96375; 99285; J0456; J1160; J1650; J1940; J2405; J3010; J3370; J7030

== ENCOUNTER 2024-10-23 16:30 | Emergency (ER) | payer OTHER, SELFPAY ==
[2024-10-23 17:34] LABS: Absolute Eosinophils 0.1 K/uL (0-0.5); Absolute Lymphocytes (CBC) 1.3 K/uL (0.7-4.9); Absolute Monocytes 0.9 K/uL (0.1-1.3); Absolute Neutrophil 9.7 K/uL (1.8-8.0); Basophils % 0.3 % (0-1.3); Eosinophils % 0.7 % (0-4.4); Hematocrit 28.5 % (36.0-45.0); Hemoglobin 8.9 g/dL (12.0-15.0); Lymphocytes % 11.1 % (15.3-44.8); MCH 23.8 pg (27.0-35.0); MCHC 31.4 g/dL (32.0-36.0); MPV 6.4 fL (7.6-11.3); Monocytes % 7.5 % (3.3-12.3); Neutrophils % 80.4 % (41.7-73.7); Platelets 423 thou/uL (152-406); RBC Red Blood Cell Count 3.75 M/uL (3.86-4.86)
[2024-10-23 17:53] LABS: Anion Gap 8.3 mEq/L (5.0-15.0); Potassium 3.3 mEq/L (3.5-5.1)
--- NOTE | 2024-10-23 17:53 | RAD REPORT ---
EXAMINATION: US Transvaginal OB CLINICAL INDICATION: Female 39 years old.[facility] MAIN VAGINAL BLEEDING Bed: TECHNIQUE: Real-time ultrasonography of the pelvis was performed transvaginally and Transabdominal. C olor and spectral Doppler evaluation of the ovaries was performed. COMPARISON: No prior exam. FINDINGS: UTERUS AND CERVIX: The uterus is enlarged, measures 14.3 cm in length. The uterus is normal. No jackson s seen. No gestational sac visualized. Thickening and heterogeneity in the lower segment, could relate to blood clot material distending the endometrial. At the fundus, The endometrium measures 1.6 cm in thickness. RIGHT OVARY: Normal The right ovary measures 3.6 x 2.9 x 2.3 cm. Normal color and spectral Doppler evaluation of the right ovary.. LEFT OVARY: Not visualized.. FREE FLUID: No free fluid. IMPRESSION: Enlarged uterus with no gestational sac visualized. Thickening and heterogeneity of the endometrial cavity at the lower uterine segment, could relate to blood clot material. Nonvisualization of the left ovary limits evaluation.
--- NOTE | 2024-10-23 18:24 | ER ---
Nurse's Notes [facility] Name: Rosetta Ramírez Age: 39 yrs Sex: Female : 1985 Arrival Date: 10/23/2024 Time: 16:30 Bed 17 Private MD: Diagnosis: Vaginal Bleeding in early Presentation: 10/23 17:38 Chief complaint: Patient states: vaginal bleeding X 3 hours, thinks she is miscarrying, iw , LMP aug 20. Coronavirus screen: At this time, the client does not indicate any symptoms associated with coronavirus-19. Ebola Screen: No symptoms or risks identified at this time. Initial Sepsis Screen: Does the patient meet any 2 criteria? No. Patient's initial sepsis screen is negative. Does the patient have a suspected source of infection?. Risk Assessment: Do you want to hurt yourself or someone else? Patient reports no desire to harm self or others. Onset of symptoms was October 23, 2024. 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 - Infectious Disease History:: Denies. - Social history:: Smoking status: unknown. Screenin:42 [facility] ED Fall Risk Assessment (Adult) History of falling in the last 3 months, iw including since admission No falls in past 3 months (0 pts) Confusion or Disorientation No (0 pts) Intoxicated or Sedated No (0 pts) Impaired Gait No (0 pts) Mobility Assist Device Used No (0 pt) Altered Elimination No (0 pt) Score/Fall Risk Level 0 - 2 = Low Risk Oriented to surroundings, Maintained a safe environment. Abuse screen: Denies injuries from another. Nutritional screening: No deficits noted. Tuberculosis screening: No symptoms or risk factors identified. Assessment: 17:41 Obstetrical Assessment: General assessment: anxious. General: Appears uncomfortable, iw Behavior is cooperative. Pain: Complains of pain in pelvis. Neuro: Level of Consciousness is awake, alert, obeys commands, Oriented to person, place, time, situation, Moves all extremities. Respiratory: Airway is patent Respiratory effort is even, unlabored. : Reports vaginal bleeding that is with clots, heavy flow. Vital Signs: 17:38 BP 102 / 57; Pulse 94; Resp 16; Pulse Ox 99% on R/A; Weight 62.14 kg; Height 5 ft. 6 iw in. ; Pain 8/10; 17:38 Body Mass Index 22.11 (62.14 kg, 167.64 cm) iw 17:38 Pain Scale: Adult ED Course: 16:32 Patient arrived in ED. im 16:34 Todd Pineda MD is Attending Physician. ec2 17:01 Transvaginal Ob In Process Unspecified. EDMS 17:22 BMP Sent. 6 17:22 Quantitative Hcg Sent. bc6 17:22 Abo/rh Typing Sent. 6 17:22 CBC with Diff Sent. 6 17:23 Initial lab(s) drawn, by oh, sent to lab. Inserted saline lock: 20 gauge in left bc6 antecubital area, using aseptic technique. Blood collected. Flushed with 10 mL NS. 17:39 Triage completed. iw 17:40 Arm band placed on. iw 17:43 Patient has correct armband on for positive identification. Provided Education on: . iw Client placed on continuous cardiac and pulse oximetry monitoring. NIBP monitoring applied. 18:53 Lorrie Cho, RN is Primary Nurse. ap3 19:03 No provider procedures requiring assistance completed. IV discontinued, intact, ap3 bleeding controlled, No redness/swelling at site. Pressure dressing applied. Administered Medications: 19:03 Drug: Acetaminophen PO 1000 mg PO once Route: PO; ap3 Medication: 17:42 VIS not applicable for this client. iw Outcome: 18:24 Discharge ordered by . ec2 19:03 Discharged to lobby via wheel chair ap3 19:03 Condition: good 19:03 Discharge instructions given to patient, Instructed on discharge instructions, follow up and referral plans. Demonstrated understanding of instructions, follow-up care, 19:05 Patient left the ED. ap3 Signatures: Dispatcher [employer] Mihaela Whitley RN RN Lorrie Cho RN RN ap3 Sarah Collado 6 Kelle Alex Pineda, Todd, MD MD ec2
--- NOTE | 2024-10-23 18:24 | EDPHYS ---
Physician Documentation [facility] Name: Rosetta Ramírez Age: 39 yrs Sex: Female : 1985 Arrival Date: 10/23/2024 Time: 16:30 Bed 17 Private MD: ED Physician Todd Pineda HPI: 10/23 18:22 This 39 yrs old Female presents to ER via Ambulatory with complaints of ec2 Vaginal Bleeding, + Preg <12wks. 18:22 Patient arrives today for evaluation of vaginal bleeding in . Patient reports ec2 positive home testing, reports that she is been having some vaginal bleeding with large clots. Reports history of previous miscarriage. Patient reports history of CHF, no blood thinners.. 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 - Infectious Disease History:: Denies. - Social history:: Smoking status: unknown. ROS: 18:23 Constitutional: as per hpi ec2 Exam: 18:23 Constitutional: GEN: NAD Head: atraumatic Eyes: EOMI Ears: External ears are ec2 normal. CV: regular rate LUNGS: no respiratory distress ABD: non-distended SKIN: no evidence of rashes MSK: no evidence of trauma Vital Signs: 17:38 BP 102 / 57; Pulse 94; Resp 16; Pulse Ox 99% on R/A; Weight 62.14 kg; Height 5 ft. 6 iw in. ; Pain 8/10; 17:38 Body Mass Index 22.11 (62.14 kg, 167.64 cm) iw 17:38 Pain Scale: Adult iw MDM: 16:34 Medical Screening Exam initiated ec2 18:23 Data reviewed: vital signs, nurses notes. ED course: Patient arrives today for vaginal ec2 bleeding. Examination is remarkable for hemodynamically stable individuals otherwise in no acute distress. Ultrasound shows no identifiable IUP, hCG level is elevated, instructed the patient return in 48 hours for repeat testing. DDx is considered included processes such as miscarriage, ectopic, placenta previa. 10/23 16:35 Order name: CBC with Diff; Complete Time: 17:48 ec2 10/23 16:35 Order name: Quantitative Hcg; Complete Time: 18:16 ec2 10/23 16:35 Order name: Abo/rh Typing; Complete Time: 18:16 ec2 10/23 16:35 Order name: BMP; Complete Time: 18:16 ec2 10/23 16:35 Order name: US Transvaginal Ob; Complete Time: 18:16 ec2 10/23 16:35 Order name: IV; Complete Time: 17:22 ec2 Administered Medications: 19:03 Drug: Acetaminophen PO 1000 mg PO once Route: PO; ap3 Disposition Summary: 10/23/24 18:24 Discharge Ordered Condition: Stable ec2 Diagnosis - Vaginal Bleeding in early ec2 Followup: ec2 - With: Private Physician - When: - Reason: Re-evaluation by your physician Discharge Instructions: - Discharge Summary Sheet ec2 - Miscarriage, [id number] ec2 Forms: - Medication Reconciliation Form ec2 - Antibiotic Education ec2 - Prescription Opioid Use ec2 - Patient Portal Instructions ec2 - Leadership Thank You Letter ec2 Signatures: Dispatcher [employer] Mihaela Whitley RN RN iw Lorrie Cho RN RN ap3 Todd Pineda MD MD ec2 Corrections: (The following items were deleted from the chart) 16:36 16:36 CBC+H.LAB.BRZ ordered. EDMS EDMS 16:36 16:36 QUANTITATIVE HCG+C.LAB.BRZ ordered. EDMS EDMS 16:36 16:36 ABO/RH TYPING+BB.LAB.BRZ ordered. EDMS EDMS 16:36 16:36 BASIC METABOLIC PANEL+C.LAB.BRZ ordered. EDMS EDMS 16:36 16:36 Transvaginal Ob+US.RAD.BRZ ordered. EDMS EDMS
[2024-10-23] MEDS ORDERED: ACETAMINOPHEN 500 MG TAB ONE (18:58)
[2024-10-23 19:26] VITALS: BP 102/57; O2SAT 99
== END 2024-10-23 19:05 | disposition home or self-care (01) ==
LOC: ER 16:30
DX: O20.9 Hemorrhage in early pregnancy, unspecified (principal)
CPT/HCPCS: 36415; 76817; 80048; 84702; 85025; 86900; 86901; 99284